=== PATIENT | female | born 1985 | race Caucasian/White ===

== ENCOUNTER 2024-11-30 09:23 | Outpatient (CLI) | payer SELFPAY ==
--- OUTSIDE RECORDS SUMMARY | 2024-11-30 09:29 | XMS_ITS | Data Portability ---
Author Organization [facility] Address [address] [place] [address] Assessment No assessment recorded. Plan of Treatment Reminders Order Date Submit Date Provider Last Modified By Organization Details Last Modified Time Details Appointments None recorded. Lab streptococc us group B, culture, unspecified specimen 2022 023 timbo [facility]( [facility]), [place], [address], 4 15:14:26 CBC w/ auto diff [email or web address] [facility] [place], [address], 3 15:35:37 potassium, serum 2022 023 [facility]( Lab), [place], [address], 3 15:35:37 urinalysis, reflex culture [email or web address] [facility] [place], [address], 3 15:35:37 urinalysis, dipstick 2022 023 stefany [facility], [address] [place] [address] , [place], [address], 17:37:11 urinalysis, dipstick 2022 023 stefany [facility], [address] [place] [address] , [place], [address], 11:35:27 urinalysis, dipstick 2022 023 [facility], [address] [place] [address] , [place], [address], 3 11:04:13 urinalysis, dipstick 2022 023 [facility], [address] [place] [address] , [place], [address], 11:18:58 Referral gynecologic surgery referral 2022 023 [email or web address] Not available 15:04:48 Procedures None recorded. Surgeries None recorded. Imaging None recorded. Medication Orders None recorded. Patient TargetsNo targets recorded. Patient Instructions Encounter Date Encounter Id Patient Instructions Last Modified By Organization Details Last Modified Time 04/07/2023 [id number] medical record request* [email or web address] Not available 05/08/2023 14:57:33 Reason for Referral Gynecologic Surgery Referral for Supervision of high risk with history of previous section done Referring Physician: Gerda Jackson TYPEWRITER REPAIRER, Encounter Date: 04/07/2023 Results Created Date Observation Date Name Description Value Unit Range Abnormal Flag Note LastModifiedBy Organization Detail LastModifiedTime 05/09/2005/09/2023 CBC W/AUT O DIFFE RENTI AL note See Note Order ing Provi bradley: Ever galdamez DO Not Available [facility] [address] [place], [address], 05/09/2023 12:02:55 05/09/2005/0905/09/2023 CBC W/AUT O DIFFE RENTI AL white blood cell 9.4 10e3/ uL 4.5-13 .0 normal Not Available [place] [address], [place], [address], 05/09/2023 12:02:55 05/09/20 23 05/09/2023 CBC W/AUT O DIFFE RENTI AL red blood cell 4.44 10e6/ uL 3.80-5 .10 normal Not Available [place] [address], [place], [address], 05/09/2023 12:02:55 05/09/20 23 05/09/2023 CBC W/AUT O DIFFE RENTI AL hemoglobin 13.3 g/dL 11.5-1 5.3 normal Not Available [place] [address], [place], [address], 05/09/2023 12:02:55 05/09/20 23 05/09/2023 CBC W/AUT O DIFFE RENTI AL hematocrit 40.4 % 34.0-4 6.0 normal Not Available [place] [address], [place], [address], 05/09/2023 12:02:55 05/09/20 23 05/09/2023 CBC W/AUT O DIFFE RENTI AL mean cell volume 91 fL 78.0-9 8.0 normal Not Available [place] [address], [place], [address], 05/09/2023 12:02:55 05/09/20 23 05/09/2023 CBC W/AUT O DIFFE RENTI AL mean cell HGB 30.0 pg 25.0-3 5.0 normal Not Available [place] [address], [place], [address], 05/09/2023 12:02:55 05/09/20 23 05/09/2023 CBC W/AUT O DIFFE RENTI AL mean cell HGB concentratio n 32.9 g/dL 31.0-3 6.0 normal Not Available [address] [place], [place], [address], 05/09/2023 12:02:55 05/09/20 23 05/09/2023 CBC W/AUT O DIFFE RENTI AL red cell distribution width 13.9 % 11.0-1 5.0 normal Not Available [address] [place], [place], [address], 05/09/2023 12:02:55 05/09/20 23 05/09/2023 CBC W/AUT O DIFFE RENTI AL platelet count 202 10e3/ uL 150-40 0 normal Not Available [address] [place], [place], [address], 05/09/2023 12:02:55 05/09/20 23 05/09/2023 CBC W/AUT O DIFFE RENTI AL immature granulocyte % 1 0-1 normal Not Available [address] [place], [place], [address], 05/09/2023 12:02:55 05/09/20 23 05/09/2023 CBC W/AUT O DIFFE RENTI AL neutrophil % 74 % 35-75 normal Not Available [address] [place], [place], [address], 05/09/2023 12:02:55 05/09/20 23 05/09/2023 CBC W/AUT O DIFFE RENTI AL lymphocyte % 20 % 10-50 normal Not Available [address] [place], [place], [address], 05/09/2023 12:02:55 05/09/20 23 05/09/2023 CBC W/AUT O DIFFE RENTI AL monocyte % 5 % 0-15 normal Not Available [address] , [place], [address], 05/09/2023 12:02:55 05/09/20 23 05/09/2023 CBC W/AUT O DIFFE RENTI AL eosinophil % 1 % 0-5 normal Not Available [address] , [place], [address], 05/09/2023 12:02:55 05/09/20 23 05/09/2023 CBC W/AUT O DIFFE RENTI AL basophil % 0 % 0-5 normal Not Available [address] , [place], [address], 05/09/2023 12:02:55 05/09/20 23 05/09/2023 CBC W/AUT O DIFFE RENTI AL immature granulocyte # 0.05 x1000 /uL 0-0.05 normal Not Available [address] , [place], [address], 05/09/2023 12:02:55 05/09/20 23 05/09/2023 CBC W/AUT O DIFFE RENTI AL neutrophil # 6.95 x1000 /uL 1.50-8 .00 normal Not Available [address] , [place], [address], 05/09/2023 12:02:55 05/09/20 23 05/09/2023 CBC W/AUT O DIFFE RENTI AL lymphocyte # 1.85 x1000 /uL 1.20-5 .20 normal Not Available [address] [place], [place], [address], 05/09/2023 12:02:55 05/09/20 23 05/09/2023 CBC W/AUT O DIFFE RENTI AL monocyte # 0.49 x1000 /uL 0.40-0 .90 normal Not Available [address] , [place], [address], 05/09/2023 12:02:55 05/09/20 23 05/09/2023 CBC W/AUT O DIFFE RENTI AL eosinophil # 0.08 x1000 /uL 0.00-0 .50 normal Not Available [address] , [place], [address], 05/09/2023 12:02:55 05/09/20 23 05/09/2023 CBC W/AUT O DIFFE RENTI AL basophil # 0.02 x1000 /uL 0.00-0 .30 normal Not Available [address] , [place], [address], 05/09/2023 12:02:55 05/09/20 23 05/09/2023 CBC W/AUT O DIFFE RENCAMPBELL AL NRBC automated 0.0 /100_ WBC Not Available [address] , [place], [address], 05/09/2023 12:02:55 05/09/20 23 05/09/2023 CBC W/AUT O DIFFE RENTI AL performing lab see note [facility] [address] [facility] [address] Not Available [address] , [place], [address], 05/09/2023 12:02:55 05/09/20 23 05/09/2023 URINA LYSIS COMPL ETE note See Note Order ing Provi bradley: Ever galdamez DO Not Available [address] , [place], [address], 05/09/2023 12:19:16 05/09/20 23 05/09/2023 URINA LYSIS COMPL ETE UA method of collection CLEAN CATCH Not Available [address] , [place], [address], 05/09/2023 12:19:16 05/09/20 23 05/09/2023 URINA LYSIS COMPL ETE UA color YELLOW yellow Not Available [address] , [place], [address], 05/09/2023 12:19:16 05/09/20 23 05/09/2023 URINA LYSIS COMPL ETE UA appearance SL.CANDIDO UDY clear Not Available [address] , [place], [address], 05/09/2023 12:19:16 05/09/20 23 05/09/2023 URINA LYSIS COMPL ETE UA glucose dipstick NEGATI VE negati ve Not Available [address] , [place], [address], 05/09/2023 12:19:16 05/09/20 23 05/09/2023 URINA LYSIS COMPL ETE UA bilirubin dipstick NEGATI VE negati ve Not Available [address] [place], [place], [address], 05/09/2023 12:19:16 05/09/20 23 05/09/2023 URINA LYSIS COMPL ETE UA ketone dipstick 1+ negati ve abnormal Not Available [address] [place], [place], [address], 05/09/2023 12:19:16 05/09/20 23 05/09/2023 URINA LYSIS COMPL ETE UA specific gravity 1.020 1.005- 1.030 normal Not Available [address] [place], [place], [address], 05/09/2023 12:19:16 05/09/20 23 05/09/2023 URINA LYSIS COMPL ETE UA blood dipstick 1+ negati ve abnormal Not Available [address] [place], [place], [address], 05/09/2023 12:19:16 05/09/20 23 05/09/2023 URINA LYSIS COMPL ETE UA pH dipstick 6.0 5.0-9. 0 normal Not Available [address] [place], [place], [address], 05/09/2023 12:19:16 05/09/20 23 05/09/2023 URINA LYSIS COMPL ETE UA protein dipstick NEGATI VE negati ve Not Available [address] [place], [place], [address], 05/09/2023 12:19:16 05/09/20 23 05/09/2023 URINA LYSIS COMPL ETE UA urobilinogen dipstick NEGATI VE mg/dL <1 Not Available [address] [place], [place], [address], 05/09/2023 12:19:16 05/09/20 23 05/09/2023 URINA LYSIS COMPL ETE UA nitrite dipstick NEGATI VE negati ve Not Available [address] [place], [place], [address], 05/09/2023 12:19:16 05/09/20 23 05/09/2023 URINA LYSIS COMPL ETE UA leukocyte esterase dipstick TRACE negati ve Not Available [address] [place], [place], [address], 05/09/2023 12:19:16 05/09/20 23 05/09/2023 URINA LYSIS COMPL ETE UA RBC 0-5 RBC/h pf none seen abnormal Not Available [address] [place], [place], [address], 05/09/2023 12:19:16 05/09/20 23 05/09/2023 URINA LYSIS COMPL ETE UA WBC 6-10 WBC/h pf 0-5 Not Available [address] , [place], [address], 05/09/2023 12:19:16 05/09/20 23 05/09/2023 URINA LYSIS COMPL ETE UA epithelial cells 0-5 SQUAMO US epi/h pf 0-5 Not Available [address] , [place], [address], 05/09/2023 12:19:16 05/09/20 23 05/09/2023 URINA LYSIS COMPL ETE UA bacteria 1+ none seen abnormal Not Available [address] , [place], [address], 05/09/2023 12:19:16 05/09/20 23 05/09/2023 URINA LYSIS COMPL ETE UA mucus NONE SEEN none seen Not Available [address] , [place], [address], 05/09/2023 12:19:16 05/09/20 23 05/09/2023 URINA LYSIS COMPL ETE UA amorphous sediment NONE SEEN none seen Not Available [address] [place], [place], [address], 05/09/2023 12:19:16 05/09/20 23 05/09/2023 URINA LYSIS COMPL ETE comment 1 REFLEX ADDED Not Available [address] , [place], [address], 05/09/2023 12:19:16 05/09/20 23 05/09/2023 URINA LYSIS COMPL ETE performing lab see note ML - [facility] [address] [facility] [id number] Not Available [address] , [place], [address], 05/09/2023 12:19:16 05/09/20 23 05/09/2023 POTAS SIUM note See Note Order ing Provi bradley: Ever galdamez DO Not Available [address] , [place], [address], 05/09/2023 12:20:26 05/09/20 23 05/09/2023 POTAS SIUM potassium 4.2 mmol/ L 3.5-5. 1 normal Not Available [address] , [place], [address], 05/09/2023 12:20:26 05/09/20 23 05/09/2023 POTAS SIUM performing lab see note - [facility] [address] [facility] [address] Not Available [address] , [place], [address], 05/09/2023 12:20:26 05/09/20 23 05/09/2023 URINE CULTU RE note See Note Order ing Provi bradley: Ever galdamez DO Not Available [address] , [place], [address], 05/11/2023 08:52:48 05/09/20 23 05/09/2023 URINE CULTU RE urine culture See Below URINE CULTU RE(F) Rui Date/ Time: 05/09 11:39 Eloisa Date/ Time: 05/11 08:51 SOURC E: CLEAN CATCH SPEC DESC: Organ ism #1 MIXED GENIT OURIN NAKUL NADIR COLON Y COUNT : >100, 000 CFU/M L ORGAN ISM COMME NT:OR GCOM NO CLINI JUANIS SIGNI FICAN T GROWT H Not Available [address] [place], [address], 05/11/2023 08:52:48 05/09/20 23 05/09/2023 URINE CULTU RE performing lab see note - [facility] [address] [facility] [address] Not Available [address] , [place], [address], 05/11/2023 08:52:48 05/16/20 23 05/16/2023 UR DRUG SCREE N note See Note Order ing Provi bradely: Ever Wu ki DO Not Available [address] , [place], [address], 05/16/2023 07:18:57 05/16/20 23 05/16/2023 UR DRUG SCREE N ur cocaine qual NEGATI VE 150NG /mL det limit= Not Available [address] , [place], [address], 05/16/2023 07:18:57 05/16/20 23 05/16/2023 UR DRUG SCREE N ur cannabinoid( THC) qual NEGATI VE 50NG/ mL det limit= Not Available [address] , [place], [address], 05/16/2023 07:18:57 05/16/20 23 05/16/2023 UR DRUG SCREE N ur amphetamine qual NEGATI VE 500NG /mL det limit= Not Available [address] [place], [place], [address], 05/16/2023 07:18:57 05/16/20 23 05/16/2023 UR DRUG SCREE N ur barbiturate qual NEGATI VE 200NG /mL det limit= Not Available [address] , [place], [address], 05/16/2023 07:18:57 05/16/20 23 05/16/2023 UR DRUG SCREE N ur benzodiazepi ne qual NEGATI VE 200NG /mL det limit= Not Available [address] , [place], [address], 05/16/2023 07:18:57 05/16/20 23 05/16/2023 UR DRUG SCREE N ur opiates qual NEGATI VE 300NG /mL det limit= Not Available [address] , [place], [address], 05/16/2023 07:18:57 05/16/20 23 05/16/2023 UR DRUG SCREE N ur phencyclidin e (pcp) qual NEGATI VE 25NG/ mL det limit= Not Available [address] , [place], [address], 05/16/2023 07:18:57 05/16/20 23 05/16/2023 UR DRUG SCREE N ur tricylic group qual NEGATI VE 1000N G/m det limit= Not Available [address] , [place], [address], 05/16/2023 07:18:57 05/16/20 23 05/16/2023 UR DRUG SCREE N methadone urine NEGATI VE 300NG /mL det limit= Not Available [address] [place], [place], [address], 05/16/2023 07:18:57 05/16/20 23 05/16/2023 UR DRUG SCREE N ur MDMA (ecstacy) ql NEGATI VE 500NG /mL det limit= Not Available [address] [place], [place], [address], 05/16/2023 07:18:57 05/16/20 23 05/16/2023 UR DRUG SCREE N ur oxycodone ql NEGATI VE 100NG /mL det limit= Not Available [address] [place], [place], [address], 05/16/2023 07:18:57 05/16/20 23 05/16/2023 UR DRUG SCREE N ur buprenorphin e qual NEGATI VE 10NG/ mL det limit= Not Available [address] , [place], [address], 05/16/2023 07:18:57 05/16/20 23 05/16/2023 UR DRUG SCREE N performing lab see note ML - [facility] [address] [place] [address] Not Available [address] , [place], [address], 05/16/2023 07:18:57 05/16/20 23 05/16/2023 CORD BLOOD PH note See Note Order ing Provi bradley: Ever Wu ki DO Not Available [address] , [place], [address], 05/16/2023 08:48:04 05/16/20 23 05/16/2023 CORD BLOOD PH cord blood pH 7.29 7.110- 7.360 normal Not Available [address] , [place], [address], 05/16/2023 08:48:04 05/16/20 23 05/16/2023 CORD BLOOD PH performing lab see note ML - [facility] [address] [place] [address] Not Available [address] [place], [address], 05/16/2023 08:48:04 01/31/20 23 02/04/2023 US, obste tric, 2nd trime ster No observ ation record ed. [facility] [address] [facility] , [place], [address], 02/04/2023 21:55:06 01/31/20 23 02/04/2023 US, obste tric, trans vagin al No observ ation record ed. stefany [facility] [address] [place] [address] , [place], [address], 02/04/2023 21:55:24 02/08/20 23 01/30/2023 US, obste tric, 2nd trime ster No observ ation record ed. BARCODE [facility] [address] [place] [address] , [place], [address], 02/07/2023 09:52:18 02/08/20 23 01/30/2023 US, obste tric, trans vagin al No observ ation record ed. BENTLEY [facility] [address] [place] [address] , [place], [address], 02/07/2023 09:52:18 Result Notes None recorded. Problems Name Problem SNOMED Code Status Onset Date Resolution Date Notes Provider Name and Address Organization Details Recorded Time Placenta previa 05581567 Completed 10/13/2020 complete Pebbles Boyce [place], [place] - [facility] 1 07:57:17 High risk pregnanc y 95671834 Completed 03/21/2021 Infusion Nurse [facility], [place], [address] , [facility] - [facility] 4 08:21:11 Placenta previa 69259309 Completed complete [facility] [address], [place], [address] , [place] - [facility] 0 11:57:35 High risk pregnanc y 14986102 Completed Infusion Nurse [facility] [address], [place], [address] , [facility] - [facility] 0 11:57:35 Pregnanc y 32926235 Completed 201807/08/2019 Infusion Nurse [facility] [address], [place], [address] , [facility] - [facility] 4 08:20:55 Gastroes ophageal reflux disease 708298214 Active Roxanne Santillan, TUBE PULLER [address], [place], [address] , [place] - [facility] 3 11:31:17 Normal pregnanc y 44377727 Completed 04/01/2019 Aruna [place], [place] - [facility] 9 09:31:33 Pregnanc y 96016133 Completed 201504/05/2016 In[facility] [address], [place], [address] , [place] - [facility] 4 08:20:55 Past pregnanc y history of placenta previa 788353987 Completed 202003/21/2021 In[facility] Nurse [facility] [address], [place], [address] , [place] - [facility] 1 15:31:35 Supervis ion of high risk pregnanc y with history of previous section Completed 202003/21/2021 Infusion Nurse [facility] [address], [place], [address] , [place] - [facility] 1 15:31:51 Supervis ion of high risk pregnanc y with history of previous section done 78299212765 106 Completed 2020 36 wk Primary C/S in 2019 @ [facility] [address], [place], [address] , [place] - [facility] 1 15:31:13 High risk pregnanc y care Completed 2020 In[facility] Nurse [facility] [address], [place], [address] , [place] [facility] 1 15:31:14 Pregnanc y 26473217 Completed 202010/13/2020 In[facility] Nurse [facility] [address], [place], [address] , [place] [facility] 4 08:20:55 Multigra rody of advanced maternal age 957808569 Completed 2020 35 y/o G11 Infusion Nurse [facility] [address], [place], [address] , [place] [facility] 1 15:31:14 Multigra rody of advanced maternal age 510689176 Completed 202003/21/2021 35 y/o G11 Infusion Nurse [facility] [address], [place], [address] , [place] - [facility] 15:31:46 Maternal obesity complica ting pregnanc y, childbir th and the puerperi um, antepart 24759142554 7 Completed 2020 BMI: 30 [x] A1c: 5.2 Infusion Nurse [facility] [address], [place], [address] , [place] - [facility] 15:31:13 Maternal obesity complica ting pregnanc y, childbir th and the puerperi , antepart 74789414162 7 Completed 202003/21/2021 BMI: 30 [x] A1c: 5.2 Infusion Nurse [facility] [address], [place], [address] , [place] - [facility] 1 15:31:40 Past pregnanc y history of delivery of macrosom al 82757211253 102 Completed 2020 9#, 2014 9# 8oz, 2016 9# Infusion Nurse [facility] [address], [place], [address] , [place] - [facility] 15:31:14 Past pregnanc y history of delivery of macrosom al infant 99386786463 102 Completed 202003/21/20212010 9#, 2014 9# 8oz, 2016 9# Infusion Nurse [facility] [address], [place], [address] , [place] - [facility] 15:31:31 Antenata l screenin g Completed Declined genetic testing [facility] [address], [place], [address] , [place] - [facility] 15:31:14 Gestatio nal diabetes mellitus 10572180 Completed Checked BS at home - diet controll ed Infusion Nurse [facility] [address], [place], [address] , [place] - [facility] 15:31:14 Transien t hyperten rich of pregnanc y - not delivere d 842532477 Completed Difficul t to determin e if GHTN due to elevated BP with headache at home but only had one episode of elevated BP in office [facility] [address], [place], [address] , [place] - [facility] 1 15:31:14 Postnata l care status 598848133 Completed 10/25/2022 Roxanne Santillan, TUBE PULLER [address], [place], [address] , [place] - [facility] 3 11:31:21 Pregnanc y 53199399 Completed 202206/03/2023 Infusion Nurse [facility] [address], [place], [address] , [place] - [facility] 4 08:20:55 Active immuniza tion Completed declined all [facility] Nurse [facility] [address], [place], [address] , [place] - [facility] 4 08:20:44 Antenata l screenin g Completed declined all [facility] [address], [place], [address] , [place] - [facility] 4 08:20:44 Past pregnanc y history of gestatio nal hyperten rich 837502208 Completed 2022 [x]basel ine pre-e labs: [ ] ASA Infusion Nurse [facility] [address], [place], [address] , [place] - [facility] 4 08:20:44 Past pregnanc y history of gestatio nal hyperten rich 850195069 Completed 202206/03/2023 [x]basel ine pre-e labs: [ ] ASA [facility] Nurse [facility] [address], [place], [address] , [place] - [facility] 4 08:21:19 Advanced maternal age 791769378 Completed 202206/03/2023 [ ]twice weekly NST at 32wks [ ]weekly MARYLU declines twice weekly but will do weekly [facility] [address], [place], [address] , [place] - [facility] 4 08:21:08 Advanced maternal age 385855665 Completed 2022 [ ]twice weekly NST at 32wks [ ]weekly MARYLU declines twice weekly but will do weekly [facility] [address], [place], [address] , [place] [facility] 4 08:20:44 High risk pregnanc y 29708279 Completed 2022 Infusion Nurse [facility] [address], [place], [address] , [place] [facility] 4 08:20:44 High risk pregnanc y 91480032 Completed 202206/03/2023 Infusion Nurse [facility] [address], [place], [address] , [place] [facility] 4 08:21:11 Past pregnanc y history of gestatio nal diabetes mellitus 191613629 Completed 202206/03/2023 [ ]Early 1hr gtt: Infusion Nurse [facility] [address], [place], [address] , [place] [facility] 4 08:21:15 Past pregnanc y history of gestatio nal diabetes mellitus 707966433 Completed 2022 [ ]Early 1hr gtt: Infusion Nurse [facility] [address], [place], [address] , [place] [facility] 4 08:20:44 Supervis ion of high risk pregnanc y with history of previous section done 72742033900 106 Completed 2022 [x] C-sectio n 05/16 w/ SMO Infusion Nurse [address], [place], [address] , [place] [facility] 4 08:20:44 Supervis ion of high risk pregnanc y with history of previous section done 99518016966 106 Completed 202206/03/2023 [x] C-sectio n 05/16 w/ SMO Infusion Nurse [facility] [address], [place], [address] , [place] [facility] 4 08:21:24 Atrial fibrilla tion 88351274 Active Infusion Nurse [facility] [address], [place], [address] , [place] [facility] 4 08:20:44 Atrial fibrilla tion 23756541 Completed [facility] [address], [place], [address] , [place] [facility] 4 08:20:44 Problem Notes None recorded. Procedures Surgical History Date Name Laterality Status Provider Name and Address Organization Details Recorded Time 3 delivery completed [facility] Nurse [facility] [address], [place], [address], [place] [facility] 06/03/2023 08:21:58 3 OB Ultrasound Summary completed Roopa Reyes [place] - [facility] 01/30/2023 16:28:55 3 OB Ultrasound Summary completed Roopa Reyes [place] - [facility] 11/21/2022 12:11:23 3 OB Ultrasound Summary completed Roopa Reyes [place] - [facility] 10/25/2022 12:18:42 1 section completed Roxanne Santillan APRN [address], [place], [address], [place] [facility] 10/25/2022 11:33:23 1 OB Ultrasound Summary completed Roopa Reyes [place] [facility] 02/12/2021 15:50:26 1 OB Ultrasound Summary completed Roopa Reyes [place] [facility] 10/19/2020 14:30:08 9 section completed Effie Sequeira APRN [address], [place], [id number], [place] [facility] 10/13/2020 11:38:00 9 OB Ultrasound Summary completed Benjaminbradford Reyes [place] [facility] 04/29/2019 12:02:53 9 OB Ultrasound Summary completed Yasmeen Cordova [place] [facility] 04/14/2019 09:52:47 9 OB Ultrasound Summary [place] Yara Smith [place] [facility] 04/01/2019 09:08:44 9 OB Ultrasound Summary [place] Yasmeen Cord[place] [facility] 03/05/2019 11:10:29 9 OB Ultrasound Summary completed Roopa Reyes [place] [facility] 02/04/2019 15:39:29 9 OB Ultrasound Summary [place] Yasmeen Cordova [place] [facility] 11/23/2018 12:26:21 9 OB Ultrasound Summary [place] Roopa [place]yes [place] [facility] 10/27/2018 13:13:49 9 OB Ultrasound Summary [place] Yara Smith [place] [facility] 08/06/2018 12:11:17 6 OB Ultrasound Summary completed Yasmeen Cordova [place] [facility] 04/05/2016 10:31:43 Imaging Results None recorded. Procedure Notes None recorded. Medical Equipment None Reported. Allergies No known drug allergies Medications Name Sig Start Date Stop Date Status Note LastModified by Organization Details LastModified Time amoxicill in 500 mg capsule TAKE (1) CAPSULE BY MOUTH TWICE DAILY. 02/19 completed Not Available Not Available Not Available Celestone Soluspan 6 mg/mL suspensio n for injection Take 12 mg every day by injectio n route for 2 days. 10/13 completed Not Available Not Available Not Available Diflucan 150 mg tablet take 1 tablet (150 mg) by oral route once today, repeat dose in 48 hrs; may repeat regimen in two weeks if symptoms continue 04/05 completed Diflucan oral tablet 150 mg;Recor ded Status: Recorded on: 06/15/19 15 9:18AM;U ser: [email or web address] ;Indicat ion: Vulvovag inal Candidia sis - ();Prin marin: 06/15/19 15 Not Available Not Available Not Available Metrogel Vaginal 0.75 % (37.5 mg/5 gram) insert 1 applicat orful (37.5 mg) by vaginal route once daily at bedtime for 5 days 06/15 completed Metrogel Vaginal Vaginal Gel 0.75 %;Record ed Status: Recorded on: 03/20/20 11 3:50PM;D iscontin ued Status: Disconti nued on: 06/15/19 15 8:46AM;U ser: [email or web address] ;Est. Completi on: 03/25/20 11;Indic ation: Bacteria l Vaginosi s - ([id number] );Prin marin: 03/20/20 11 Not Available Not Available Not Available nifedipin e 10 mg capsule Take 1 capsule 4 times a day by oral route as needed. 10/13 completed Not Available Not Available Not Available ranitidin e 150 mg tablet Take 1 tablet PO QD 04/14 completed Not Available Not Available Not Available flecainid e 100 mg tablet TAKE 1 TABLET BY MOUTH TWICE DAILY 10/25 completed Not Available Not Available Not Available iron 325 mg (65 mg iron) tablet take 4 tablets by oral route daily 08/06 completed iron oral tablet 325 mg (65 mg iron);Re corded Status: Recorded on: 06/15/19 15 8:46AM;U ser: [email or web address] Not Available Not Available Not Available Prilosec OTC 20 mg tablet,de layed release Take 1 tab PO QD 10/13 completed Not Available Not Available Not Available 27 mg iron-0.8 mg tablet take 1 tablet by oral route once daily 10/13 completed oral tablet 27-0.8 mg;Recor ded Status: Recorded on: 06/15/19 15 8:46AM;U ser: [email or web address] Not Available Not Available Not Available herbs qd active Not Available Not Av ailable Not Available metoprolo l succinate ER 50 mg capsule sprinkle, ext. release 24 hr Take 1 capsule every day by oral route. active Not Available Not Available No t Available Vitals Date Recorded Body weight Body mass index (BMI) Body height Heart rate Oxygen saturation Oxygen saturation in Arterial blood by Pulse oximetry Respiratory rate Systolic And Diastolic Provider Name and Address Organization Details Last Updated DateTime 3 29899.5 503 g 32.6 kg/m2 162.56 cm 82 /min 98 % 98 % 17 /min 110/78 mm[Hg] Ariela Waters [place] - [facility] 3 10:55:31 Date Recorded Body weight Provider Name an d Address Organization Details Last Updated DateTime 03/21/2023 09706.56506 g Gerda Jackson , DO [address], [place], [address], [place] - [facility] 03/21/2023 11:02:02 Date Recorded Body height Body mass index (BMI) Systolic And Diastolic Provider Name and Address Organization Details Last Updated DateTime 03/21/2023 162.56 cm 33.3 kg/m2 116/74 mm[Hg] Shayy Mckenna [place] - [facility] 03/21/2023 10:40:44 Date Recorded Body height Body mass index (BMI) Body weight Systolic And Diastolic Provider Name and Address Organization Details Last Updated DateTime 04/07/2023 162.56 cm 34.7 kg/m2 25112.658 74 g 124/76 mm[Hg] Iris Valentino [facility] 04/07/2023 11:26:24 Date Recorded Body height Body mass index (BMI) Body weight Systolic And Diastolic Provider Name and Address Organization Details Last Updated DateTime 04/28/2023 162.56 cm 35.5 kg/m2 92508.620 59 g 116/74 mm[Hg] Iris Valentino [facility] 04/28/2023 13:39:35 Date Recorded Body height Body mass index (BMI) Body weight Systolic And Diastolic Provider Name and Address Organization Details Last Updated DateTime 05/09/2023 162.56 cm 36 kg/m2 27439.397 7 g 118/78 mm[Hg] Iris Valentino [facility] 05/09/2023 10:36:03 Social History Question Answer Notes LastModified by Organizat ion Details LastModified Time Tobacco Smoking Status Never Smoker Brooke anglin [facility] 04/05/2016 10:59:53 Do You Have An Advance Directive? No Information not available 04/05/2016 If You Are , What Was Your Level Of Alcohol Consumption Prior To ? None [email or web address] Information not available 10/13/2020 Is Anesthesia Consult Planned? No Wants Information not available 10/13/2020 Plan Yes Wants If Possible Information not available 10/13/2020 Are You Blind Or Do You Have Difficulty Seeing? No Information not available 04/05/2016 Is Blood Transfusion Acceptable In An Emergency? Yes [email or web address] Information not available 10/13/2020 Breast Feeding? Yes [email or web address] Informati on not available 10/13/2020 What Is Your Level Of Caffeine Consumption? Occasional Information not available 04/05/2016 Live With Cats/exposure To Cat Litter No [email or web address] Information not available 10/13/2020 How Much Tobacco Do You Chew? None Information not available 04/05/2016 In The 14 Days Before Symptom Onset, Have You Had Close Contact With A Laboratory-confi rmed COVID-19 While That Case Was Ill? No Information not available 10/25/2022 In The 14 Days Before Symptom Onset, Have You Had Close Contact With A Person Who Is Under Investigation For COVID-19 While That Person Was Ill? No Information not available 10/25/2022 Have You Been To An Area Known To Be High Risk For COVID-19? No Information not available 10/25/2022 Are You Deaf Or Do You Have Serious Difficulty Hearing? No Information not available 04/05/2016 Diabetes No [email or web address] Information no t available 10/13/2020 What Type Of Diet Are You Following? REGULAR Information not available 04/05/2016 Which Illicit Or Recreational Drugs Have You Used? None Information not available 04/05/2016 Have You Processed Blood Or Body Fluids From An Ebola Virus Disease Patient Without Appropriate PPE? No Information not available 10/25/2022 Do You Reside In Or Have You Traveled To An Area Where Ebola Virus Transmission Is Active? No Information not available 10/25/2022 Education 8 [email or web address] Information no t available 10/13/2020 What Is The Highest Grade Or Level Of School You Have Completed Or The Highest Degree You Have Received? [id number] Information not available 10/27/2018 How Many Days Of Moderate To Strenuous Exercise, Like A Brisk Walk, Did You Do In The Last 7 Days? 1 Information not available 10/27/2018 On Those Days That You Engage In Moderate To Strenuous Exercise, How Many Minutes, On Average, Do You Exercise? 1 [email or web address] Information not available 10/27/2018 Have There Been Any Changes To Your Family Or Social Situation? No [email or web address] Information not available 10/13/2020 How Hard Is It For You To Pay For The Very Basics Like Food, Housing, Medical Care, And Heating? 1 [email or web address] Information not available 10/27/2018 Frequent Air Travel No [email or web address] Information not available 10/13/2020 Have You Recently Or Are You Planning To Travel To An Area With Zika Virus? No Information not available 10/25/2022 High Blood Pressure No [email or web address] Information not available 10/13/2020 High Cholesterol No Informat ion not available 10/13/2020 High Number Of Sexual Partners No [email or web address] Information not available 10/13/2020 Illicit Drugs Pre- None [email or web address] Information not available 10/13/2020 Live Alone Or With Others? With Others Information not available 04/05/2016 Latex Allergy No Information not available 10/13/2020 Marital Status [email or web address] Informatio n not available 10/13/2020 What Was The Date Of Your Most Recent Tobacco Screening? 10/25/2022 [email or web address] Information not available 10/18/2022 How Many Children Do You Have? 10 Information not available 10/25/2022 Do You Have Any Pets? No Information not available 10/13/2020 Do You Use Protection During Sex? No Information not available 04/05/2016 What Is Your Relationship Status? Information not available 04/05/2016 Seat Belts Used Routinely Yes When In A Vehicle [email or web address] Information not available 10/13/2020 Are You Sexually Active? Yes Information not available 04/05/2016 Do You Have Smoke And Carbon Monoxide Detectors In Your Home? Yes [email or web address] Information not available 10/13/2020 Are You Passively Exposed To Smoke? No [email or web address] Information not available 10/13/2020 How Much Tobacco Do You Smoke? No [email or web address] Information not available 10/13/2020 Smoking Pre- No [email or web address] Information not available 10/13/2020 General Stress Level Low Information not available 04/05/2016 Do You Use Sunscreen Routinely? No Information not available 04/05/2016 Supplements Herbs [email or web address] Information not available 10/13/2020 Has Tobacco Cessation Counseling Been Provided? No Information not available 10/25/2022 How Many Years Have You Smoked Tobacco? 0 [email or web address] Information not available 10/13/2020 Do You Have Difficulty Walking Or Climbing Stairs? No Information not available 04/05/2016 Do You Have Symptoms Associated With Zika Virus (fever, Rash, Joint Pain, Or Conjunctivitis)? No [email or web address] Information not available 10/13/2020 Have You Recently (within The Last 12 Weeks, Or During A Current ) Traveled To Or Lived In A Zika-affected Area? No [email or web address] Information not available 10/13/2020 Sex: Female Functional Status Question Answer Note LastModified by Organizat ion Details LastModified Time Do you or have you ever used smokeless tobacco? Never used smokeless tobacco [email or web address] Information not available 10/13/2020 Are you currently employed? No Information not available 04/05/2016 Do you have transportation difficulties? No Information not available 10/25/2022 Are you able to care for yourself? Yes Information n ot available 10/25/2022 Do you have difficulty dressing or bathing? No Information not available 04/05/2016 Do you or have you ever used e-cigarettes or vape? Never used electronic cigarettes [email or web address] Information not available 10/13/2020 What is your exercise level? None Information not available 04/05/2016 Do you use any illicit or recreational drugs? No Information not available 10/25/2022 Do you or have you ever used any other forms of tobacco or nicotine? No Information not available 10/25/2022 What is your level of alcohol consumption? None Information not available 04/05/2016 What is your status? Information no t available 10/25/2022 Are you able to walk? YESWOREST [email or web address] Information not available 10/27/2018 Do you have difficulty doing errands alone? 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 [id number] Information not available 10/25/2022 Do you have difficulty concentrating, remembering or making decisions? No Information no t available 04/05/2016 Family History Relationship Description Onset Age of this Age Resolved Age Notes LastModified by Organization Details LastModified Time Father Heart disease [email or web address] available 2015 09:45:16 Medical History Condition Response Pancreatitis N Other N Atrial Fibrillation N congenital heart disease N Blood Diseases N Hyperthyroidism N Rheumatoid arthritis N Blood Transfusion N Erectile Dysfunction N amputation N Skin Lesions N Depression N Pneumonia N Incontinence N Murmur N Edema N Alzheimer's Disease N Migraine Headaches N Tobacco Abuse N Anxiety Disorder N Hemorrhoids N Obesity N Vision or Eye Problems N Restless Leg Syndrome N Arthritis N Polyps N Infertility N Carpal Tunnel N Acid Reflux (GERD) N Cancer N Varicosities N Stroke N Tendonitis N Crohn's Disease N Hypercholesterolemia N Skin Cancer N Headaches N Fibromyalgia N Irritable Bowel Syndrome N Anal Fissure N Kidney Disease N Heart Problems N Hospitalizations Y Gallstones N Kidney or Bladder Problems N Goiter N Acne N Eating Disorder N Weston's Esophagus N Hypertriglyceridemia N Constipation N Embolism N Vitamin B12 Deficiency N Deviated Septum N AIDS/HIV N Myocardial Infarction N Asthma N Mitral Valve Disorders N Vertigo N Hepatitis N Thyroid Cancer N Neuropathy N History of DVT N Herniated Disc N Chicken Pox Y Von Willebrands Disease N Thrombophilias N Breast Cancer N Hernia N Plantar Fasciitis N Lung Disease N Hypothyroidism N Defects or Inherited Disease N Breast Problem N Ovarian Cyst N Anesthesia Complications N Testosterone Deficiency N Interstitial Cystitis N Congenital Anomalies N Hypoglycemia N Blood clot N Vitamin D Deficiency N Cellulitis N Endometriosis N Fracture N Bladder or Kidney Problems N Schizophrenia N Panic Disorder N Concussion N Spina Bifida N Osteoarthritis N Parkinson's Disease N Disc Protrusion N STI N Esophagitis N Angina N Thyroid Problems N GI Problems N ADD/ADHD N Anemia Y Multiple Sclerosis N Abnormal PAP N Lumbago N Mental Illness N Psychiatric Illness N Ovarian Cancer N Diabetes N Degenerative Disc Disease N Seizures/Epilepsy N Syncope N Insomnia N Hyperlipidemia N Eczema N Dementia N Attention Deficient Disorder N Abuse/Domestic Violence N Ulcerative colitis N Cerebrovascular Disease N Depression N Guillain-[place] N Sleep Apnea N Aneurysm N Heart Disease Y Bronchitis N Suicidal Ideation N Pre-Eclampsia N Hypertension N Osteoporosis N Gynecological History Statement/Question Response Abnormal Pap N Date of Last Mammogram Flow Moderate Date of LMP 08/29/2022 On BCP's at Conception? N STIs/STDs N Colposcopy HPV Vaccine N Duration of Flow (days) Current Control Method Age at Menarche 10 Age at First Child 17 Last Annual Exam/Provider 2007 Date of Last Colonoscopy Frequency of Cycle (Q days) 30 Most Recent Bone Density Sexually Active? Y Menses Monthly Y Date of Last Pap Smear Sexual Problems? N LMP Definite Obstetrics History GPAL:G 12 P 10 1 1 11 Type Value Full Term 10 Spontaneous 1 Premature 1 Living 11 Total 12 Immunizations Vaccine Type Date Status Note Provider Name and Address Organization Details Recorded Time Influenza, split virus, quadrivalent, preservative 02/27/20 23 cancelled patient objection Gerda Jackson DO [facility] [address], [place], [address], [facility] - [facility] 02/26/2023 11:18:58 Tdap 01/06/20 15 completed Ariela Huang [facility] 11/21/2022 11:13:06 Past Encounters Encounter ID Performer Location Encounter Start Date Encounter Closed Date Diagnosis/Indication Diagnosis SNOMED-CT Code Diagnosis ICD10 Code Diagnosis Note [id number] CRISTINA Harris [employer] [address] [place] [address] TEVIN Rojo [id number] 04/05/2016 09:55:32 04/05/2016 11:25:52 Normal 78220022 Z34.92 Gestation period, 20 weeks 30542563 Z3A.20 care: grand multiparity 839514943 O09.42 [id number] Gerda Jackson DO [place] [employer] [address] [place] [address] TEVIN Rojo [id number] 7 04/05/2016 09:57:10 04/05/2016 13:21:54 care: grand multiparity [id number] O09.42 Normal 6090135 2 Z34.92 Gestation period, 20 weeks 15408811 Z3A.20 [id number] Yara Ko DO [place] [employer] [address] [place] [address] TEVIN Rojo [id number] 7 05/10/2016 11:04:57 05/10/2016 12:41:52 Gestation period, 25 weeks 08844024 Z3A.25 screening 2437 71152 Z36 Normal 2603730 2 Z34.92 Grand multipara 94441328 Z64.1 [id number] ADI [place] [employer] [address] [place] [address] TEVIN Rojo [id number] 7 06/05/2016 09:45:00 06/05/2016 10:33:56 Gestation period, 29 weeks 36915741 Z3A.29 Normal 1240850 2 Z34.93 Varicose v eins of lower extremity 03137073 I83.93 Grand multipara 67821048 Z64.1 [id number] ADI [place] [employer] [address] [place] [address] TEVIN Rojo [id number] 7 06/18/2016 10:40:47 06/18/2016 11:22:03 Gestation period, 31 weeks 60250932 Z3A.31 care: grand multiparity 982047683 O09.43 [id number] ADI Wilburn [employer] [address] [place] [address] TEVIN Rojo [id number] 7 07/02/2016 10:14:01 07/02/2016 11:08:07 Grand multipara 06617341 Z64.1 High risk 4720 0007 O09.93 [id number] ADI Wilburn [employer] [address] [place] [address] TEVIN Rojo [id number] 7 07/16/2016 10:18:23 07/16/2016 10:59:47 Grand multipara [id number] Z64.1 screening 2437 08179 Z36 High risk 4720 0007 O09.93 Gestation period, 35 weeks 57205888 Z3A.35 [id number] ADI Wilburn [employer] [address] [place] [address] TEVIN Rojo [id number] 7 07/23/2016 09:40:06 07/23/2016 10:12:14 Multigravida of advanced maternal age 070194159 O09.523 Grand multipara 93788721 Z64.1 [id number] ADI Wilburn [employer] [address] [place] [address] TEVIN Rojo [id number] 7 07/30/2016 14:53:56 07/30/2016 15:36:26 Gestation period, 37 weeks 09173907 Z3A.37 Normal 4948502 2 Z34.93 [id number] ADI Wilburn [employer] [address] [place] [address] TEVIN Rojo [id number] 7 08/06/2016 15:25:40 08/06/2016 16:18:29 Gestation period, 38 weeks 11104029 Z3A.38 High risk 4720 0007 O09.93 Grand multipara 10959990 Z64.1 [id number] MD [place] [employer] [address] [place] [address] TEVIN Rjoo [id number] 7 08/06/2018 10:35:49 08/06/2018 13:04:58 Spotting per vagina in 817052358 O26.859 Missed AB confirmed per transabdom inal ultrasound . Patient declining advised pelvic exam for evaluation of other etiologies of spotting Missed miscarriage 44899 004 O02.1 Diagnosis and natural history reviewed. Condolence s given. Currently declining any surgical or medical interventi on, but concerned about risk of emergency given previous hemorrhage at home with her 7th baby. Risks and benefits of surgical/m edical or expectant management reviewed. Reasonable to give her 1 or 2 weeks for spontaneou s passage with close precaution s to call or come to hospital urgently if has heavy bleeding without completing tissue passage lasting more than 4 hours. they preferred this option. Set up with collection hat and specimen cup and has been advised to bring in any tissue she might pass as soon as possible. Previous blood type RH positive. advise 1 week follow-up visit but sooner if any heavy bleeding or pain or suspect completing miscarriag e sooner.Wou ld consider repeating ultrasound for transvagin al views if patient allows, prior to any medical or surgical interventi on although very good clarity of the transabdom inal pictures today [id number] 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 [address] [place] [address] TEVIN Rojo [id number] 7 10/27/2018 12:35:56 10/27/2018 14:26:41 Normal 13142015 Z34.92 Spotting p er vagina in 230531403 O26.851 Gestation period, 7 weeks 89827566 Z3A.01 [id number] 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 [address] [place] [address] TEVIN Rojo [id number] 7 11/23/2018 10:33:16 11/23/2018 12:45:54 Normal 05540655 Z34.92 screening 2437 57431 Z36.9 [id number] Lynette Vega MD [place] [employer] [address] [place] [address] TEVIN Rojo [id number] 7 02/04/2019 15:00:12 02/04/2019 16:02:56 High risk 31965403 O09.92 Gestation period, 21 weeks 83842452 Z3A.21 Placenta previa 68277291 O44.00 [id number] Patricia Gupta APRN [place] [employer] [address] [place] [address] TEVIN Rojo [id number] 7 03/05/2019 10:31:42 03/05/2019 11:56:37 Gestation period, 25 weeks 13016666 Z3A.25 Placenta previa 40385337 O44.02 High risk 4720 0007 O09.92 Gestation period, 21 weeks 78781235 Z3A.21 [id number] 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 [address] [place] [address] TEVIN Rojo [id number] 7 04/01/2019 08:42:26 04/01/2019 10:16:44 High risk 82051785 O09.93 Placenta previa 54095643 O44.03 Gestation period, 29 weeks 80282851 Z3A.29 Heartburn 45460065 R12 [id number] 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 [address] [place] [address] TEVIN Rojo [id number] 7 04/14/2019 09:19:27 04/14/2019 11:21:04 Placenta previa 78013007 O44.03 High risk 4720 0007 O09.93 Gastroesop hageal reflux disease 955657182 K21.9 Gestation period, 31 weeks 76491200 Z3A.31 [id number] 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 [address] [place] [address] TEVIN Rojo [id number] 7 04/28/2019 09:43:05 04/28/2019 11:04:45 High risk 13287083 O09.93 Placenta previa 15259958 O44.03 First episode of bleeing - brownish discharge Gestation period, 33 weeks 43491246 Z3A.33 [id number] Gerda Jackson DO [place] [employer] [address] [place] [address] TEVIN Rojo [id number] 7 04/29/2019 10:41:57 04/29/2019 16:23:01 Placenta previa 50459616 O44.03 First episode of bleeing - brownish discharge High risk 4720 0007 O09.93 Gestation period, 33 weeks 82196738 Z3A.33 [id number] Gerda Jackson DO [place] [employer] [address] [place] [address] TEVIN Rojo [id number] 7 05/03/2019 11:14:12 05/03/2019 12:06:40 Placenta previa 42650514 O44.03 First episode of bleeing - brownish discharge High risk 4720 0007 O09.93 Gestation period, 34 weeks 90885515 Z3A.34 [id number] CRISTINA Leal [employer] [address] [place] [address] TEVIN Rojo [id number] 7 10/13/2020 14:26:20 10/13/2020 15:46:39 Urine test positive 246039727 Z32.01 Maternal o besity complicating , childbirth and the puerperium, antepartum 2985553971 07 O99.210 High risk 4720 0007 O09.90 Past pregn chinyere history of placenta previa 478034438 Z87.59 Supervisio n of high risk with history of previous section done 1224445274 9106 O34.211 Multigravi da of advanced maternal age 276891655 O09.522 Past pregn chinyere history of delivery of macrosomal 4113886386 9102 Z87.59 [id number] 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 [address] [place] [address] TEVIN Rojo [id number] 7 10/19/2020 13:56:33 10/19/2020 15:14:29 Past history of delivery of macrosomal infant 6690302787 9102 Z87.59 Maternal o besity complicating , childbirth and the puerperium, antepartum 6140367397 07 O99.210 High risk 4720 0007 O09.90 Past pregn chinyere history of placenta previa 780840841 Z87.59 Supervisio n of high risk with history of previous section done 1674242891 9106 O34.211 Multigravi da of advanced maternal age 622298101 O09.522 Gestation period, 16 weeks 82870736 Z3A.16 screening 2437 01135 Z36.9 [id number] Gerda Jackson DO [place] [employer] [address] [place] [address] TEVIN Rojo [id number] 7 12/22/2020 09:34:30 12/22/2020 11:06:05 Supervision of high risk with history of previous section done 5168847145 9106 O34.211 Multigravi da of advanced maternal age 908711760 O09.522 Past pregn chinyere history of delivery of macrosomal infant 8971428644 9102 Z87.59 Gestation period, 26 weeks 18317924 Z3A.26 [id number] Gerda Jackson DO [place] [employer] [address] [place] [address] TEVIN Rojo [id number] 7 12/27/2020 09:06:08 12/27/2020 10:31:47 Supervision of high risk with history of previous section done 3089207288 9106 O34.211 Multigravi da of advanced maternal age 780984809 O09.522 Past pregn chinyere history of delivery of macrosomal 9337615849 9102 Z87.59 Gestation period, 26 weeks 30445826 Z3A.26 [id number] Gerda Jackson DO [place] [employer] [address] [place] [address] TEVIN Rojo [id number] 7 01/26/2021 09:52:20 01/26/2021 11:12:18 Supervision of high risk with history of previous section done 6987065463 9106 O34.211 Multigravi da of advanced maternal age 162463765 O09.522 Past pregn chinyere history of delivery of macrosomal 1984765683 9102 Z87.59 Gestation period, 30 weeks 98224563 Z3A.30 Gestationa l diabetes mellitus 01224425 O24.419 Proteinuria 62040842 R80 .9 [id number] MD Socorro [place] [employer] [address] [place] [address] [place] [id number] 7 02/12/2021 15:35:32 02/12/2021 16:14:10 Supervision of high risk with history of previous section done 6997889664 9106 O34.211 Multigravi da of advanced maternal age 790044802 O09.522 Past pregn chinyere history of delivery of macrosomal infant 3868575764 9102 Z87.59 Gestationa l diabetes mellitus 91710831 O24.419 Gestation period, 33 weeks 73811641 Z3A.33 [id number] 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 [address] [place] [address] TEVIN Rojo [id number] 7 02/19/2021 15:26:17 02/19/2021 15:57:26 Supervision of high risk with history of previous section done 3996252418 91 O34.211 Multigravi da of advanced maternal age 730945280 O09.522 Past pregn chinyere history of delivery of macrosomal infant [id number] 9102 Z87.59 Gestationa l diabetes mellitus 59908654 O24.419 Gestation period, 34 weeks 94255089 Z3A.34 [id number] 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 [address] [place] [address] TEVIN Rojo [phone] 7 02/28/2021 16:09:36 02/28/2021 17:10:16 Gestation period, 35 weeks 68541214 Z3A.35 Multigravi da of advanced maternal age 149160533 O09.522 High risk 4720 0007 O09.90 Supervisio n of high risk with history of previous section done [id number] 91 O34.562 [id number] 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 [address] [place] [address] TEVIN Rojo [phone] 7 03/06/2021 11:44:31 03/06/2021 12:18:37 Pre-surgery evaluation 920129191 Z01.818 Past pregn chinyere history of delivery of macrosomal infant 0400900138 9102 Z87.59 High risk 4720 0007 O09.90 Multigravi da of advanced maternal age 503544980 O09.522 Gestation period, 36 weeks 59148464 Z3A.36 Gestationa l diabetes mellitus 99157535 O24.419 - induced hypertension 14008516 O13.9 [id number] CRISTINA Tran TYPEWRITER RE[employer]IRER [address] [place] [address] T[place] Rojo [phone] 7 10/25/2022 10:25:00 10/25/2022 12:39:36 Routine care 048350532 Z34.91 Urine preg moon test positive 847268281 Z32.01 Past pregn chinyere history of gestational diabetes mellitus 836393477 Z86.32 Past pregn chinyere history of gestational hypertension 479003417 Z87.59 screening 2437 35627 Z36.9 Gestation period, 8 weeks 89479468 Z3A.08 Advanced m aternal age 140398238 O09.521 High risk 4720 0007 O09.521 Supervisio n of high risk with history of previous section done 6577819542 9106 O09.165 [id number] 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 [address] [place] [address] TEVIN Rojo [phone] 7 11/21/2022 11:05:43 11/21/2022 12:24:33 Past history of gestational diabetes mellitus 624260705 Z86.32 Past pregn chinyere history of gestational hypertension 169912997 Z87.59 Advanced m aternal age 431647022 O09.521 Supervisio n of high risk with history of previous section done 1381761857 9106 O09.899 Routine an tenatal care 192240999 Z34.81 Gestation period, 12 weeks 80566742 Z3A.12 screening 2437 50629 Z36.9 [id number] 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 [address] [place] [address] TEVIN Rojo [id number] 7 01/30/2023 15:32:02 01/30/2023 16:46:03 Gestation period, 22 weeks 72452782 Z3A.22 screening 2437 63008 Z36.9 Advanced m aternal age 645081134 O09.521 Supervisio n of high risk with history of previous section done 4278776418 9106 O09.149 [id number] 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 [address] [place] [address] TEVIN Rojo [phone] 7 02/26/2023 10:47:34 02/26/2023 11:17:41 screening 801447448 Z36.9 Advanced m aternal age 315997045 O09.521 Past pregn chinyere history of gestational diabetes mellitus 642404262 Z86.32 Past pregn chinyere history of gestational hypertension 436011008 Z87.59 Supervisio n of high risk with history of previous section done 4968546259 9106 O09.899 Gestation period, 25 weeks 35483389 Z3A.25 Administra tion of influenza vaccine 62003838 Z23 Influenza vaccine needed 8428215448 106 Z23 [id number] 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 [address] [place] [address] TEV[place] Rojo [phone] 7 03/21/2023 10:20:50 03/21/2023 11:28:43 screening 756359012 Z36.9 Advanced m aternal age 064121974 O09.521 Past pregn chinyere history of gestational diabetes mellitus 418644837 Z86.32 Past pregn chinyere history of gestational hypertension 994993842 Z87.59 Supervisio n of high risk with history of previous section done 9703636094 9106 O09.899 Gestation period, 29 weeks 61762218 Z3A.29 [id number] 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 [address] [place] [address] TEV[place] Rojo 28108-059 7 04/07/2023 11:20:52 04/07/2023 11:46:43 screening 017458445 Z36.9 Advanced m aternal age 759110896 O09.521 Past pregn cihnyere history of gestational diabetes mellitus 142355194 Z86.32 Past pregn chinyere history of gestational hypertension 797939723 Z87.59 Supervisio n of high risk with history of previous section done 0400485583 9106 O09.899 Gestation period, 31 weeks 71304959 Z3A.31 History of atrial fibrillation 495106728 Z86.79 [id number] 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 [address] [facility] [place] Rojo [id number] 7 04/28/2023 13:33:18 04/28/2023 13:59:30 Advanced maternal age 068892202 O09.521 Past pregn chinyere history of gestational diabetes mellitus 481839295 Z86.32 Past pregn chinyere history of gestational hypertension 796494206 Z87.59 Supervisio n of high risk with history of previous section done 8626528650 9106 O09.899 History of atrial fibrillation 983056501 Z86.79 Gestation period, 34 weeks 20636403 Z3A.34 [id number] 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 [address] [place] [address] TEVIN Rojo [id number] 7 05/09/2023 10:27:28 05/09/2023 10:52:45 Pre-surgery evaluation 065646978 Z01.818 Advanced m aternal age 729707875 O09.523 Supervisio n of high risk with history of previous section done 6574105354 9106 O09.899 Gestation period, 36 weeks 32253716 Z3A.36 History of atrial fibrillation 146226361 Z86.79 Health Concerns Section Related Observation LastModified by Organization Detai ls LastModified Time None Recorded Concern Status LastModified by Organization Details LastModified Time None Recorded Advance Directives Directive N: Payers Insurance Date Sequence Insurance Name Policy Number Policy Dunham Covered Member ID Dunham Member ID Guarantor Name 10/19/2020 SLIDING FEE SCHEDULE - DISCOUNT Meagan Moreno Notes Date Note Type Note Provider Name and Address Organization Details Recorded Time 02/26/2023 text/html ob visit Gerda Jackson DO [address], [place], [address], [place] - [facility] 02/26/2023 11:29:48 03/21/2023 text/html See OB flowsheet Gerda Jackson DO [address], [place], [address], [place] - [facility] 03/21/2023 11:07:12 04/07/2023 text/html see OB flow sheet Gerda Jackson DO [address], [place], [address], [place] - [facility] 04/07/2023 11:50:40 04/28/2023 text/html ob visit Gerda Jackson DO [address], [place], [address], [place] - [facility] 04/28/2023 17:38:41 05/09/2023 text/html OB visit Gerda Jackson DO [address], [place], [address], [facility] - [facility] 05/10/2023 17:40:18 OBGyn Episode Ob Episode Information Episode Created Date Number of Fetuses Patient Bloodtype Patient rh Status Prepregnancy Weight lbs Domestic Partner Domestic Partner Phone Father Name Machine Stuffer Automatic Status 10/26/19 23 1 O Positive 158 Geremias Moreno CLOSED Fetus Data First Name Last Name Admitted to NICU Weight (g) Sex Living Outcome Pediatric Complications Fetus ID Race Codes Race Delivery Type 2834.95 M true Full Term 71120 2106-3 White Problems Problem Notes [facility]- ho memakerbreast/no circ/repeat cs03/05/2003 42 wks in Llepxkwvblgf74/29/2005 41wks home birth07/10/2006 40wks home birth09/26/2007 home birth08/01/2008 37wks home birth05/11/2011 40wks home birth08/05/2014 40wks home birth08/09/2016 38.4wks SROM epidural SVD107/18/2018 36.1wks P c/s at [facility] for placenta gceuul9603/12/2021 37.3wks R c/s AMA, GDM, gHTN per SMOULTRASOUNDS:10/25/22 US: CRL 1.81cm, FHR 180, JOSE A consistent w/LMP/AD11/21/22: Viability, FCA. Unable to auscultate FHT with doppler/SMO02/04/23: 22wk GA/bay: complete, normal, vertex, male, anterior placenta, CL >4cm, no funneling/SMO Problem Name Start Date End Date Resolution Snomed Code Not e Supervision of high risk with history of previous section done 10/27/2022 [id number] [x] 05/16 w/ SMO High risk 10/27/2022 29129144 Past history of gestational diabetes mellitus 10/27/2022 616277722 [ ]Early 1hr gt t: Past history of gestational hypertension 10/27/2022 242958067 [x]baseline pre -e labs:[ ] ASA Advanced maternal age 10/27/2022 957749284 [ ]twice weekly NST at 32wks[ ]weekly AFIdeclines twice weekly but will do weekly Active immunization 94776909 declined all screening 942621673 declined all Atrial fibrillation 34716261 Jose A Calculation Initial Jose A Date Initial Exam Date Initial Exam Provider Initial Ultrasound Date Last Menstrual Period Date Ultra Sound Weeks Gestation 06/05/2023 10/25/2022 08/29/2022 0 Eighteen To Twenty Week Jose A Update Ultra Sound Date Fundal Height At Umbil Quickening Date Ultra Sound Latest Weeks Gestation Final Jose A Confirmed By Final Jose A Confirmed Date Final Jose A Date Ultra Sound Latest Days Gestation 0 06/05/19 24 0 Pre-eileen Flowsheet Flowsheet Date 10/25/2022 Ferrell Score Blood Edema Fundus Height Fundus Units Glucose Ketones Leukocytes Nitrite Labor Signs Protein Cervic Dilation Cervic Effacement Cervic Station neg none none negative none Negative none neg Type Weight in lbs Pre/Post Dialysis Refused With clothes 158.564742513097 BP Diastolic BP Location Tested BP Systolic BP Type 78 120 sitting Fetus Heart Rate Present Fetus Movement A No Comments Meagan is here for ob hx appt. Planned . Hx of gHTN and GDM. Baseline pre-e labs today. She is ok w/early 1hr gtt. Desires repeat c/s, no contraception afterwards. Hx of c/s x2. Discussed AMA, she would like to do once weekly NSTs instead of twice. Dating u/s today, JOSE A consistent w/LMP. Declined additional screening and immunizations. She has no q/c today. Taking PNV. Occasional nausea but manageable. Discussed course of care. No q/c today. RTC 4wks for obpe, sooner if needed. Meagan declined MFM referral.AD Flowsheet Date 11/21/2022 Ferrell Score Blood Edema Fundus Height Fundus Units Glucose Ketones Leukocytes Nitrite Labor Signs Protein Cervic Dilation Cervic Effacement Cervic Station neg none 12 wks none negative none Negative Other (see comments ) neg Type Weight in lbs Pre/Post Dialysis Refused With clothes 160.000480236480 BP Diastolic BP Location Tested BP Systolic BP Type 64 106 sitting Fetus Heart Rate Present A US Present Fetus Movement Comments obp, neg leuks, neg nits, no lof, no vb.JRM +FHT on US. Discussed BP which she feels is low and occasionally feels lightheaded and dizzy but she has also had issues with BS being in the 80's and makes her feel bad. She takes BS from time to time after meals and it is about 120 to 130. Recommend closer monitoring. Declines supplies or logs. Will follow up in 4 weeks to see how she is feeling./SMO Flowsheet Date 01/30/2023 Ferrell Score Blood Edema Fundus Height Fundus Units Glucose Ketones Leukocytes Nitrite Labor Signs Protein Cervic Dilation Cervic Effacement Cervic Station neg none 22 wks none negative none Negative none neg Type Weight in lbs Pre/Post Dialysis Refused With clothes 184.417453770026 BP Diastolic BP Location Tested BP Systolic BP Type 76 110 sitting Fetus Heart Rate Present A US Present Fetus Movement A Yes Comments afm, no vb or lof, pt doing well, voiced no issues or concerns at this time - SNOW Reviewed US findings -complete, normal, male - surprised it was a boy because of the pattern of her children. She is not sure if this is going to be the last one. Recommend ASA 81mg. Doing well, no complaints. F/U 6 weeks for 1h GTT/SMO Flowsheet Date 02/26/2023 Ferrell Score Blood Edema Fundus Height Fundus Units Glucose Ketones Leukocytes Nitrite Labor Signs Protein Cervic Dilation Cervic Effacement Cervic Station trace none 25 wks none negative none Negative Other (see comments ) neg Type Weight in lbs Pre/Post Dialysis Refused Stated 190.045241757653 BP Diastolic BP Location Tested BP Systolic BP Type 78 110 sitting Fetus Heart Rate Present A Present Fetus Movement A Yes Comments no lof, no vb, afm. she stat es she is having mild intermittent cramping and light contractions. - myriamwilliamsroselyn Discussed cramping and occasional contractions. Encouraged hydration. Discussed BS - seems to be related to tachycardia - was recommended to be on a Beta Kirk as she was on flecainide before - will talk to can marker to start Beta Kirk. BS is better controlled with apple cider vinegar. Occasionally will be in the low 150's - recommend checking 2h after meals and keep a record to review at next visit. She does not want to take medication every day for BS. Discussed that she will most likely have a tubal with this c/s due to heart issues but it makes her sad as she would have many more children. F/U 3 weeks - declines 1h GTT/SMO Flowsheet Date 03/21/2023 Ferrell Score Blood Edema Fundus Height Fundus Units Glucose Ketones Leukocytes Nitrite Labor Signs Protein Cervic Dilation Cervic Effacement Cervic Station neg none 29 wks none small none Negative none neg Type Weight in lbs Pre/Post Dialysis Refused With clothes 194.025942691589 BP Diastolic BP Location Tested BP Systolic BP Type 74 116 sitting Fetus Heart Rate Present A Present Fetus Movement A Yes Comments no LOF, no VB, no issues/con cerns today. CB Other than being tired - doing okay. Does not feel like beta kirk controls heartrate as well as flecainide. Baby is active but she is worried that her BS and HR are affecting the baby. Discussed option of referral to MFM, declined. 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 Encouraged hydration. Discussed delivery - she would prefer 37 weeks, discussed that babies at 37 weeks may need transferred. She is hoping not but hoping to plan for a 37 week c/s. Will re-visit at next visit/SMO Flowsheet Date 04/07/2023 Ferrell Score Blood Edema Fundus Height Fundus Units Glucose Ketones Leukocytes Nitrite Labor Signs Protein Cervic Dilation Cervic Effacement Cervic Station neg none 32 cm none negative none Negative Cramping neg Type Weight in lbs Pre/Post Dialysis Refused With clothes 202.594428288478 BP Diastolic BP Location Tested BP Systolic BP Type 76 124 sitting Fetus Heart Rate Present A Present Fetus Movement A Yes Comments AFM, no VB, no LOF, c/o cram ping off and on./MR Cramping is intermittent, no contractions. 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 Reports BS is good if she watches what she eats - FBS is in the 80 - 90's, after meals is what it should be unless ice cream or other sweets. Did not bring BS log. Discussed importance of maintaining blood sugar log. Declines testing. History of afib - took flecainide prepregnancy and has transitioned to metroprolol. Medical record request sent. F/U 2 weeks/SMO Flowsheet Date 04/28/2023 Ferrell Score Blood Edema Fundus Height Fundus Units Glucose Ketones Leukocytes Nitrite Labor Signs Protein Cervic Dilation Cervic Effacement Cervic Station neg trace 35 cm none negative none Negative Georges Garcia neg Type Weight in lbs Pre/Post Dialysis Refused With clothes 207.509808874935 BP Diastolic BP Location Tested BP Systolic BP Type 74 116 sitting Fetus Heart Rate Present A Present Fetus Movement A Yes Comments AFM, no VB, no LOF, c/o Brax ton Garcia, no other concerns./MR She has no complaints other than BH contractions and she is not sure that she is going to make it to 37 weeks. Given labor precautions. F/U as scheduled. Declines any APT./SMO Flowsheet Date 05/09/2023 Ferrell Score Blood Edema Fundus Height Fundus Units Glucose Ketones Leukocytes Nitrite Labor Signs Protein Cervic Dilation Cervic Effacement Cervic Station neg 1+ 36 cm none negative none Negative Cramping neg Type Weight in lbs Pre/Post Dialysis Refused With clothes 210.062150201175 BP Diastolic BP Location Tested BP Systolic BP Type 78 118 sitting Fetus Heart Rate Present A Present Fetus Movement A Yes Comments AFM, no VB, no LOF, c/o cram ping with no other issues./MR Does not want a cervical exam. Discussed labor precautions. Reviewed repeat c/s - considering a tubal. She and her will continue to discuss. Discussed her Afib history with Dr. Montes De Oca, will need EKG the morning of surgery but no additional intervention necessary. ECHO in May 2022 in chart. Discussed risks of infant needed transferred at 37 week delivery. She verbalized understanding and previous baby was born at 37 weeks with no complications or need for transfer. F/U /SMO Menstrual History Last Menstrual Date Menses Monthly On Bcp Conception Prior Menses Frequency Hcg Plus Date Menarche Onset Age 0408/29/2022 true false Genetic Screening And Infection History Question Response Note Patient's Age Will Be 35 Years Or Older At Estim ated Date of Delivery true Thalassemia (New Zealander, Argentine, Mediterranean, Or Background): MCV < 80 false Neural Tube Defect (Meningomyelocele, Spina Bifi da, Or Anencephaly) false Congenital Heart Defect false Down Syndrome false Jj-Sachs (eg, Roman Catholic, Cajun, Gibraltarian-American) f alse Lion Disease false Sickle Cell Disease Or Trait () false Hemophilia Or Other Blood Disorders false Muscular Dystrophy false Cystic Fibrosis false Hague's Chorea false Mental Retardation/Autism false If Yes, Was Person Tested For Fragile X? false Other Inherited Genetic Or Chromosomal Disorder false Maternal Metabolic Disorder (eg, Type 1 Diabetes , PKU) false Patient Or Baby's Father Had A Child With Defects Not Listed Above false Recurrent Loss, Or A Stillbirth false Medications (including Suppl ements, Vitamins, Herbs, OTC Drugs), Illicit/Recreational Drugs, Alcohol false If Yes, Agent(s) And Strength/Dosage false Any Other Genetic History false Live With Someone With TB Or Exposed To TB false Patient Or Partner Has History Of Genital Herpes false Rash Or Viral Illness Since Last Menstrual Perio d false History Of STD, Gonorrhea, Chlamydia, HPV, Syphi lis false Other Infection History false History of HIV false History of Hepatitis false Prior GBS-infected child false Recent Travel Outside of Country false Plans and Education First Trimester Discussed Date Discussion Item Discussion Note Discuss ed By 10/27/2022 Desire for planned e210/27/2022 Alcohol no e210/27/2022 Illicit/recreational drugs no rich duke24 10/27/2022 Nutrition discussed 10/27/2022 Weight gain counseling discussed 10/27/2022 Intimate Partner Violence no ad uke210/27/2022 Unstable Housing no e210/27/2022 Use of any medicatio ns (including supplements, vitamins, herbs, or OTC drugs) discussed 10/27/2022 Avoidance of saunas or hot tubs discussed 10/27/2022 Indications for ultrasonography discussed 10/27/2022 Comminucation Barriers no aduke 24 10/27/2022 Anticipated course of care discu ssed 10/27/2022 Toxoplasmosis precautions (cats/raw meat) discussed 10/27/2022 Sexual activity discussed 10/27/2022 Exercise discussed 10/27/2022 Tobacco/smoking cess ation counseling (ask, advise, assess, assist, and arrange) no e210/27/2022 Barriers to Care no 10/27/2022 Environmental/work hazards discussed a duke24 10/27/2022 Depression/Anxiety ( should be performed at least once during period) no 10/27/2022 WIC/Hands Referral declined 10/27/2022 Nutrition counseling ; special diet; dietary precautions (mercury, listeriosis) discussed 10/27/2022 Dental Care / Refer to Dentist discussed 10/27/2022 Seat belt use discussed 10/27/2022 Childbirth classes/hospital facilities di scussed 10/27/2022 discussed 10/27/2022 Screening for aneuploidy discussed rocky Second Trimester Discussed Date Discussion Item Discussion Note Discuss ed By Third Trimester Discussed Date Discussion Item Discussion Note Discuss ed By Delivery Information Delivery Date Delivery Type Labor Anesthesia Weeks Gestation Incision Type Labor Labor Length Hrs Delivered By Post Complications Tubal Sterilization Discharge Date Comments None Regional-Sp inal 37.1 Low Transvers e false Gerda Jackson DO None true 05/16/2023 Repeat c/s with BS, LST inc per SMO Discharge Information Feeding Method Contraceptive Method Maternal HG B and HCT Levels Breast BS Ob Episode Information Episode Created Date Number of Fetuses Patient Bloodtype Patient rh Status Prepregnancy Weight lbs Domestic Partner Domestic Partner Phone Father Name Machine Stuffer Automatic Status 04/01/20 19 1 O Positive CLOSED Fetus Data First Name Last Name Admitted to NICU Weight (g) Sex Living Outcome Pediatric Complications Fetus ID Race Codes Race Delivery Type [id number] Problems Problem Notes AmishDue to bleeding from pr kayli (brownish discharge for days), transferred care [place] [facility] Problem Name Start Date End Date Resolution Snomed Code Not e Placenta previa [id number] comp lete High risk 46249528 Jose A Calculation Initial Jose A Date Initial Exam Date Initial Exam Provider Initial Ultrasound Date Last Menstrual Period Date Ultra Sound Weeks Gestation 06/13/2019 04/01/2019 10/27/2018 09/07/2018 6 Eighteen To Twenty Week Jose A Update Ultra Sound Date Fundal Height At Umbil Quickening Date Ultra Sound Latest Weeks Gestation Final Jose A Confirmed By Final Jose A Confirmed Date Final Jose A Date Ultra Sound Latest Days Gestation 02/05/20 19 21 [email or web address] 04/01/2019 06/13/19 20 3 Pre-eileen Flowsheet Flowsheet Date 04/01/2019 Ferrell Score Blood Edema Fundus Height Fundus Units Glucose Ketones Leukocytes Nitrite Labor Signs Protein Cervic Dilation Cervic Effacement Cervic Station none 30 cm Other (see comments ) Type Weight in lbs Pre/Post Dialysis Refused With clothes 198.707804601546 BP Diastolic BP Location Tested BP Systolic BP Type 60 120 sitting Fetus Heart Rate Present A Present Fetus Movement A Yes Comments AFM, no lof or vb.knt Review ed US findings: posterior placenta, marginal previa persists. Discussed c/s delivery at 36 to 37 6/7 weeks. Heartburn no longer controlled with TUMS, rx Ranitidine. F/U 2 weeks with US, no intercourse recommended. Bleeding precautions [place] Flowsheet Date 04/14/2019 Ferrell Score Blood Edema Fundus Height Fundus Units Glucose Ketones Leukocytes Nitrite Labor Signs Protein Cervic Dilation Cervic Effacement Cervic Station none 31 wks Other (see comments ) Type Weight in lbs Pre/Post Dialysis Refused With clothes 201.739070112278 BP Diastolic BP Location Tested BP Systolic BP Type 70 124 sitting Fetus Heart Rate Present A Present Fetus Movement A Yes Comments AFM, no lof or vb, no urine, c/o increased cramping and BH ctx.knt Discussed US findings - complete previa. Discussed scheduling c/s and having blood available. She lives a mile from a phone. Discussed delivering early with steroids. Verbalized understanding of importance of close follow up and if any bleeding - pink discharge or spotting - needs to be seen. Her questions were answered. Scheduled c/s and appointments the week of surgery for steroids. f/u 2 to 3 weeks - sooner if contractions become painful or bleeding occurs Flowsheet Date 04/28/2019 Ferrell Score Blood Edema Fundus Height Fundus Units Glucose Ketones Leukocytes Nitrite Labor Signs Protein Cervic Dilation Cervic Effacement Cervic Station 33 wks Other (see comments ) Type Weight in lbs Pre/Post Dialysis Refused BP Diastolic BP Location Tested BP Systolic BP Type Fetus Heart Rate Present A Present Fetus Movement A Yes Comments Meagan presents acutely with c omplaints of brownish discharge that started this morning about 3am with contractions and pressure. Since the contractions seemed to resolve and the discharge did not get heavier, she elected to stay home until she had to come to town to take her daughter to the eye doctor. Exam: moderate amount of brown discharge consistent with old blood in vault, no bright red bleeding or clots at os. Uterus non-tender. NST reactive with rare contraction. Patient denies contractions. Received dose of betamethasone at 10:30. Lengthy discussion with Meagan and her recommending that she go to for prolonged monitoring, possibly until delivery due to previa. She and her had several scenarios that they considered from staying in a hotel in [place] to [place]. Ultimately agreed to go to . They said they would go sometime today. If for some reason, they chose not to go, she agreed to return to our office for second dose of Celestone and NST. I spoke to Dr. Morillo at about her arriving sometime in the next 24 hours/SMOAddendum: patient has chosen not to go to [place], she is going to stay in a motel here in [place] - she will follow up tomorrow with 2nd betamethasone and an NST, sent Procardia for symptomatic relief of contractions/SMO Flowsheet Date 04/29/2019 Ferrell Score Blood Edema Fundus Height Fundus Units Glucose Ketones Leukocytes Nitrite Labor Signs Protein Cervic Dilation Cervic Effacement Cervic Station none 33 wks Other (see comments ) Type Weight in lbs Pre/Post Dialysis Refused With clothes 201.221433947421 BP Diastolic BP Location Tested BP Systolic BP Type 76 110 sitting Fetus Heart Rate Present A Present Fetus Movement A Yes Comments AFM, no lof, brown discharge , no urine, Celestone inj given, NST. knt NST reactive, no contractions. She has had contractions in the evening. Discussed with Dr. Morillo, she recommended cervical length. CL > 4cm. She is staying at the [facility] and the plan is for her to call 911 if she starts bleeding, call the hospital and then the doctor healthcare economics consultant and OR crew will be called in. Reiterated recommendation to go to but she and her have decided that staying near [facility] is the best option for them. Discussed previa bleeding behavior and risks of for baby and mom. Questions answered and they will stay in [place]. If no worsening of brown discharge or bleeding, will continue delivery plan for 09/29 with c/s. Will see twice weekly with NSTs. Appointment scheduled for Friday with NST/SMO Flowsheet Date 05/03/2019 Ferrell Score Blood Edema Fundus Height Fundus Units Glucose Ketones Leukocytes Nitrite Labor Signs Protein Cervic Dilation Cervic Effacement Cervic Station 2+ none 34 wks none negative none Negative Other (see comments ) neg Type Weight in lbs Pre/Post Dialysis Refused With clothes 202.273180917420 BP Diastolic BP Location Tested BP Systolic BP Type 82 112 sitting Fetus Heart Rate Present A Present Fetus Movement A Yes Comments BI per SMO for NST/visit, af m, neg leuks, mod bld, neg nits, no lof, no vb, c/o lots of pressure that started yesterday with irregular cntrx..JRM Overall doing well. Brownish discharge has resolved. NST reactive, no contractions. Patient reports pressure but contractions have resolved. Discussed going to tertiary care center - her 's family member shared their story of a previa and Meagan and her are concerned and ready to go to a tertiary care center for all it's resources. Notified Dr. Godoy of patient's decision. F/U as needed Menstrual History Last Menstrual Date Menses Monthly On Bcp Conception Prior Menses Frequency Hcg Plus Date Menarche Onset Age 0409/07/2018 Genetic Screening And Infection History Question Response Note Patient's Age Will Be 35 Years Or Older At Estim ated Date of Delivery false Thalassemia (New Zealander, Argentine, Mediterranean, Or Background): MCV < 80 false Neural Tube Defect (Meningomyelocele, Spina Bifi da, Or Anencephaly) false Congenital Heart Defect false Down Syndrome false Jj-Sachs (eg, Roman Catholic, Cajun, Gibraltarian-American) f alse Lion Disease false Sickle Cell Disease Or Trait () false Hemophilia Or Other Blood Disorders false Muscular Dystrophy false Cystic Fibrosis false Latosha's Chorea false Mental Retardation/Autism false If Yes, Was Person Tested For Fragile X? false Other Inherited Genetic Or Chromosomal Disorder false Maternal Metabolic Disorder (eg, Type 1 Diabetes , PKU) false Patient Or Baby's Father Had A Child With Defects Not Listed Above false Recurrent Loss, Or A Stillbirth false Medications (including Suppl ements, Vitamins, Herbs, OTC Drugs), Illicit/Recreational Drugs, Alcohol false If Yes, Agent(s) And Strength/Dosage false Any Other Genetic History false Live With Someone With TB Or Exposed To TB false Patient Or Partner Has History Of Genital Herpes false Rash Or Viral Illness Since Last Menstrual Perio d false History Of STD, Gonorrhea, Chlamydia, HPV, Syphi lis false Other Infection History false History of HIV false History of Hepatitis false Prior GBS-infected child false Recent Travel Outside of Country false Delivery Information Delivery Date Delivery Type Labor Anesthesia Weeks Gestation Incision Type Labor Labor Length Hrs Delivered By Post Complications Tubal Sterilization Discharge Date Comments 9 None Regional-Sp inal 36.[address] e false Dr Melgoza Primary c/s at [facility] for complete placental previa, Discharge Information Feeding Method Contraceptive Method Maternal HG B and HCT Levels Ob Episode Information Episode Created Date Number of Fetuses Patient Bloodtype Patient rh Status Prepregnancy Weight lbs Domestic Partner Domestic Partner Phone Father Name Machine Stuffer Automatic Status 10/14/19 21 1 CLOSED Fetus Data First Name Last Name Admitted to NICU Weight (g) Sex Living Outcome Pediatric Complications Fetus ID Race Codes Race Delivery Type , Spontane ous [id number] Jose A Calculation Initial Jose A Date Initial Exam Date Initial Exam Provider Initial Ultrasound Date Last Menstrual Period Date Ultra Sound Weeks Gestation 0 Eighteen To Twenty Week Jose A Update Ultra Sound Date Fundal Height At Umbil Quickening Date Ultra Sound Latest Weeks Gestation Final Jose A Confirmed By Final Jose A Confirmed Date Final Jose A Date Ultra Sound Latest Days Gestation 0 0 Menstrual History Last Menstrual Date Menses Monthly On Bcp Conception Prior Menses Frequency Hcg Plus Date Menarche Onset Age Delivery Information Delivery Date Delivery Type Labor Anesthesia Weeks Gestation Incision Type Labor Labor Length Hrs Delivered By Post Complications Tubal Sterilization Discharge Date Comments 9 7 sab at home, by lmp she was 11.1 weeks but measured 7.6 weeks Discharge Information Feeding Method Contraceptive Method Maternal HG B and HCT Levels Ob Episode Information Episode Created Date Number of Fetuses Patient Bloodtype Patient rh Status Prepregnancy Weight lbs Domestic Partner Domestic Partner Phone Father Name Machine Stuffer Automatic Status 10/14/19 21 1 O Positive Geremias Moreno, white, 41 [employer] CLOSED Fetus Data First Name Last Name Admitted to NICU Weight (g) Sex Living Outcome Pediatric Complications Fetus ID Race Codes Race Delivery Type 2948.34 8 M true Full Term [id number] Problems Problem Notes previa with 2019 delivery at 36 weeks at , wants but does not want to go to Dating US at 16w6d: complete, normal, vertex, anterior placenta, CL>3.9, no funneling/SMO33 week growth scan (02/12/21) EFW 52.6%, MARYLU 16, Vertex, anterior placenta/SMO Problem Name Start Date End Date Resolution Snomed Code Not e Supervision of high risk with history of previous section done 10/13/2020 [id number] 36 w k Primary C/S in 2019 @ High risk care 10/13/2020 [id number] Multigravida of advanced maternal age 0510/13/2020 [id number] 35 y/o G11 Past history of delivery of macrosomal 10/13/2020 [id number] 2010 9#, 2014 9# 8oz, 2016 9# screening [id number] Declined genetic testing Maternal obesity complicating , childbirth and the puerperium, antepartum 10/13/2020 [id number] BMI: 30[x] A1c: 5.2 Transient hypertension of - not delivered [id number] Difficult to determine if GHTN due to elevated BP with headache at home but only had one episode of elevated BP in office Gestational diabetes mellitus [id number] Checked BS at h ome - diet controlled Jose A Calculation Initial Jose A Date Initial Exam Date Initial Exam Provider Initial Ultrasound Date Last Menstrual Period Date Ultra Sound Weeks Gestation 03/30/2021 10/13/2020 [email or web address] 06/23/2020 0 Eighteen To Twenty Week Jose A Update Ultra Sound Date Fundal Height At Umbil Quickening Date Ultra Sound Latest Weeks Gestation Final Jose A Confirmed By Final Jose A Confirmed Date Final Jose A Date Ultra Sound Latest Days Gestation 0 03/30/20 21 0 Pre-eileen Flowsheet Flowsheet Date 10/13/2020 Ferrell Score Blood Edema Fundus Height Fundus Units Glucose Ketones Leukocytes Nitrite Labor Signs Protein Cervic Dilation Cervic Effacement Cervic Station neg none 16 none negative none Negative none neg Type Weight in lbs Pre/Post Dialysis Refused With clothes 175.207582559069 BP Diastolic BP Location Tested BP Systolic BP Type 71 117 sitting Fetus Heart Rate Present A 156 Fetus Movement Comments obhx, no lof, no vb, decline s genetic testing, wants to have , I discussed with her that we don't do that and she wanted to talk with to help with this issue-ct //Meagan presents today for an OB Hx. She states this was not a planned , but is desired. Reviewed plan of care. She understands that we do not do at this facility. She would like to transfer to at 36 wks if this is possible. She does not thinking vaginal would be an issue since she is proven to +9 lbs. She is taking PNVs and tolerating them. No Q/C. F/U 1 wk for US and visit. Flowsheet Date 10/19/2020 Ferrell Score Blood Edema Fundus Height Fundus Units Glucose Ketones Leukocytes Nitrite Labor Signs Protein Cervic Dilation Cervic Effacement Cervic Station neg none 16 wks none negative none Negative none neg Type Weight in lbs Pre/Post Dialysis Refused With clothes 172.988138686222 BP Diastolic BP Location Tested BP Systolic BP Type 70 120 sitting Fetus Heart Rate Present A Present Fetus Movement A Yes Comments pt states noVb, no LOF, no C TX. pt has some nausea. //EV Reviewed US findings: complete, normal, vertex, anterior placenta, CL>3.9, no funneling. No issues. Would like to TOLAC - good candidate - unable to TOLAC at [facility] and declines . F/U at 28 weeks or sooner if necessary, will need to schedule repeat c/s/SMO Flowsheet Date 12/22/2020 Ferrell Score Blood Edema Fundus Height Fundus Units Glucose Ketones Leukocytes Nitrite Labor Signs Protein Cervic Dilation Cervic Effacement Cervic Station neg 26 cm none negative none Negative Other (see comments ) neg Type Weight in lbs Pre/Post Dialysis Refused With clothes 191.124851863234 BP Diastolic BP Location Tested BP Systolic BP Type 68 110 sitting Fetus Heart Rate Present A Present Fetus Movement A Yes Comments No vb, no lof, neg leuk, neg nits, states she has some occasional cramping.//BW Reports cramping is occasional. Concerned that blood sugar is an issue - taking it at home from time to time. A little concerned that it is 90 in the morning and after eating has been as high as 150's. Given log to start logging and will review in one week. Taking PNV. F/U 1 week to review BS log/SMO Flowsheet Date 12/27/2020 Ferrell Score Blood Edema Fundus Height Fundus Units Glucose Ketones Leukocytes Nitrite Labor Signs Protein Cervic Dilation Cervic Effacement Cervic Station neg none 28 cm none negative none Negative none neg Type Weight in lbs Pre/Post Dialysis Refused With clothes 191.807616488047 BP Diastolic BP Location Tested BP Systolic BP Type 80 124 sitting Fetus Heart Rate Present A Present Fetus Movement A Yes Comments pt states no VB, no LOF, no CTX. pt states AFM. pt ate breakfast so 1 hr not done. //EV Overall doing well. Removed BS log - excellent with dietary modifications. Recommend continuing to monitoring FBS daily and one 2h PP a day. No additional complaints. Denies heartburn or constipation. Would like to schedule repeat c/s - will be able to at next visit with February schedule available. F/U 4 weeks or sooner if BS is abnormal/SMO Flowsheet Date 01/26/2021 Ferrell Score Blood Edema Fundus Height Fundus Units Glucose Ketones Leukocytes Nitrite Labor Signs Protein Cervic Dilation Cervic Effacement Cervic Station neg none 31 cm none negative none Negative Other (see comments ) 3+ Type Weight in lbs Pre/Post Dialysis Refused With clothes 194.970567308342 BP Diastolic BP Location Tested BP Systolic BP Type 94 136 sitting 68 108 sitting 74 112 sitting Fetus Heart Rate Present A Present Fetus Movement A Yes Comments pt states no VB, no LOF, no CTX. pt states AFM. //EV Overall doing well. Having issues with morning sickness and not tolerating fluids well. Declines medication. Due to protein in urine, will do preE labs and send urine for culture. Reports BS is good as long as I watch what I eat . Patient is a gestational diabetic - using apple cider vinegar water to decrease BS. F/U 2 weeks with US for growth/SMO Flowsheet Date 02/12/2021 Ferrell Score Blood Edema Fundus Height Fundus Units Glucose Ketones Leukocytes Nitrite Labor Signs Protein Cervic Dilation Cervic Effacement Cervic Station none Type Weight in lbs Pre/Post Dialysis Refused With clothes 195.473329925417 BP Diastolic BP Location Tested BP Systolic BP Type Fetus Heart Rate Present A Present Fetus Movement A Yes Comments Patient Reports all fastings are in the 80s. She says that her 1 hour postprandials are in the 140s to 150s but she does not have idea how often that is the case. I encouraged her to use some sort of log to track her sugars more accurately so that we can help her manage them if she is in need of management. She feels that vinegar is helpful for control of her postprandial hyperglycemia. I explained that medications are often needed and used in these cases to ensure that the baby has a healthy outcome after delivery. I reviewed ultrasound results with her. Follow-up 1 week with glucose log, sooner as needed. /mjs Flowsheet Date 02/19/2021 Ferrell Score Blood Edema Fundus Height Fundus Units Glucose Ketones Leukocytes Nitrite Labor Signs Protein Cervic Dilation Cervic Effacement Cervic Station neg none 35 cm none negative none Negative Other (see comments ) neg Type Weight in lbs Pre/Post Dialysis Refused With clothes 197.350126495339 BP Diastolic BP Location Tested BP Systolic BP Type 78 116 sitting Fetus Heart Rate Present A Present Fetus Movement A Yes Comments pt states no VB, no LOF. michael e irregular CTX. pt states AFM. //EV Reviewed BS log - overall excellent. She reports that the 2 elevated were when she had dessert. (150's) otherwise less than 120 and FBS<90. Reports good movement. She reports having a headache and elevated BP at home recently. Took cream of amaris and BP went away. Recommend bringing BP cuff to next visit to compare results. Discussed delivery planning, she is hoping sooner than later. Denies nausea or heartburn. F/U 1 week to assess BP and BS/SMO Flowsheet Date 02/28/2021 Ferrell Score Blood Edema Fundus Height Fundus Units Glucose Ketones Leukocytes Nitrite Labor Signs Protein Cervic Dilation Cervic Effacement Cervic Station trace none 35 wks none negative none Negative Other (see comments ) neg 1cm 50% -2 Type Weight in lbs Pre/Post Dialysis Refused Preoperative 198.547643563995 BP Diastolic BP Location Tested BP Systolic BP Type 74 110 sitting Fetus Heart Rate Present A Present Fetus Movement A Yes Comments No LOF, No VB, No Cramps. PT says she is having a lot of CTX that are painful. Pt says the baby's movements have decreased some. Sergo Did not bring BS or BP log. She would like to be scheduled for repeat c/s as soon as possible. 37 weeks is reasonable with her inconsistent BS and BP and AMA. Will schedule on Friday. Given labor precautions. Exam: /2, ballotable. F/U 1 week/SMO Flowsheet Date 03/06/2021 Ferrell Score Blood Edema Fundus Height Fundus Units Glucose Ketones Leukocytes Nitrite Labor Signs Protein Cervic Dilation Cervic Effacement Cervic Station neg none 38 cm none negative none Negative Other (see comments ) neg Type Weight in lbs Pre/Post Dialysis Refused With clothes 194.850598466392 BP Diastolic BP Location Tested BP Systolic BP Type 78 122 sitting Fetus Heart Rate Present A Present Fetus Movement A Yes Comments pt states no VB, no LOF, no CTX. pt states AFM. //EV Reports BP and BS good. Discussed contractions - irregular - seems to slowing down. Other than being tired, doing well. Taking PNV and other supplements. F/U as scheduled for c/s - declines tubal/SMO Menstrual History Last Menstrual Date Menses Monthly On Bcp Conception Prior Menses Frequency Hcg Plus Date Menarche Onset Age 0106/23/2020 true Genetic Screening And Infection History Question Response Note Patient's Age Will Be 35 Yea rs Or Older At Estimated Date of Delivery true self 35 and fob 41 Thalassemia (New Zealander, Argentine, Mediterranean, Or Background): MCV < 80 false Neural Tube Defect (Meningom yelocele, Spina Bifida, Or Anencephaly) false Congenital Heart Defect false Down Syndrome false Jj-Sachs (eg, Roman Catholic, Cajun, Gibraltarian-American) f alse Lion Disease false Sickle Cell Disease Or Trait () false Hemophilia Or Other Blood Disorders false Muscular Dystrophy false Cystic Fibrosis false Latosha's Chorea false Mental Retardation/Autism false If Yes, Was Person Tested For Fragile X? false Other Inherited Genetic Or Chromosomal Disorder false Maternal Metabolic Disorder (eg, Type 1 Diabetes , PKU) false Patient Or Baby's Father Had A Child With Defects Not Listed Above false Recurrent Loss, Or A Stillbirth false Medications (including Suppl ements, Vitamins, Herbs, OTC Drugs), Illicit/Recreational Drugs, Alcohol false If Yes, Agent(s) And Strength/Dosage false Any Other Genetic History false Live With Someone With TB Or Exposed To TB false Patient Or Partner Has History Of Genital Herpes false Rash Or Viral Illness Since Last Menstrual Perio d false History Of STD, Gonorrhea, Chlamydia, HPV, Syphi lis false Other Infection History false History of HIV false History of Hepatitis false Prior GBS-infected child false Recent Travel Outside of Country false Plans and Education First Trimester Discussed Date Discussion Item Discussion Note Discuss ed By 10/13/2020 Desire for Yes [email or web address] 10/13/2020 Alcohol no [email or web address] 10/13/2020 Illicit/recreational drugs no k [id number] 10/13/2020 Nutrition discussed 10/13/2020 Weight gain counseling discussed 10/13/2020 Intimate Partner Violence no ky [id number] 10/13/2020 Unstable Housing no [id number] 10/13/2020 Use of any medicatio ns (including supplements, vitamins, herbs, or OTC drugs) PNV [email or web address] 10/13/2020 Avoidance of saunas or hot tubs discussed [email or web address] 10/13/2020 Indications for ultrasonography [email or web address] 10/13/2020 Comminucation Barriers no [email or web address] [email or web address] 10/13/2020 Anticipated course of care 10/13/2020 Toxoplasmosis precautions (cats/raw meat) no house cats [id number] 10/13/2020 Sexual activity discussed 10/13/2020 Exercise discussed 10/13/2020 Tobacco/smoking cess ation counseling (ask, advise, assess, assist, and arrange) no 10/13/2020 Barriers to Care no [id number] 10/13/2020 Environmental/work hazards no k 10/13/2020 Depression/Anxiety ( should be performed at least once during period) no [id number] 10/13/2020 WIC/Hands Referral 10/13/2020 Nutrition counseling ; special diet; dietary precautions (mercury, listeriosis) discussed 10/13/2020 Dental Care / Refer to Dentist 10/13/2020 Seat belt use 10/13/2020 Childbirth classes/hospital facilities 10/13/2020 Breast feeding 10/13/2020 Screening for aneuploidy discussed [email or web address] Second Trimester Discussed Date Discussion Item Discussion Note Discuss ed By Third Trimester Discussed Date Discussion Item Discussion Note Discuss ed By Infant Feeding Intention Breast Pain Management Plans Epidural Circumcision Preference No Delivery Information Delivery Date Delivery Type Labor Anesthesia Weeks Gestation Incision Type Labor Labor Length Hrs Delivered By Post Complications Tubal Sterilization Discharge Date Comments None Regional-Sp inal 37.3 Low Transvers e Olzeski, Gerda DO None 03/12/2021 AMA, GDMA1, GHTN, repeat ceserean per SMO.Reque sted d/c day of section (catholic) Discharge Information Feeding Method Contraceptive Method Maternal HG B and HCT Levels Ob Episode Information Episode Created Date Number of Fetuses Patient Bloodtype Patient rh Status Prepregnancy Weight lbs Domestic Partner Domestic Partner Phone Father Name Machine Stuffer Automatic Status 04/04/20 16 1 CLOSED Fetus Data First Name Last Name Admitted to NICU Weight (g) Sex Living Outcome Pediatric Complications Fetus ID Race Codes Race Delivery Type 3175.14 4 F Full Term 1923 Jose A Calculation Initial Jose A Date Initial Exam Date Initial Exam Provider Initial Ultrasound Date Last Menstrual Period Date Ultra Sound Weeks Gestation 0 Eighteen To Twenty Week Jose A Update Ultra Sound Date Fundal Height At Umbil Quickening Date Ultra Sound Latest Weeks Gestation Final Jose A Confirmed By Final Jose A Confirmed Date Final Jose A Date Ultra Sound Latest Days Gestation 0 0 Menstrual History Last Menstrual Date Menses Monthly On Bcp Conception Prior Menses Frequency Hcg Plus Date Menarche Onset Age Delivery Information Delivery Date Delivery Type Labor Anesthesia Weeks Gestation Incision Type Labor Labor Length Hrs Delivered By Post Complications Tubal Sterilization Discharge Date Comments 7 None 39 home , no issues, meagan Discharge Information Feeding Method Contraceptive Method Maternal HG B and HCT Levels Ob Episode Information Episode Created Date Number of Fetuses Patient Bloodtype Patient rh Status Prepregnancy Weight lbs Domestic Partner Domestic Partner Phone Father Name Machine Stuffer Automatic Status 04/04/20 16 1 CLOSED Fetus Data First Name Last Name Admitted to NICU Weight (g) Sex Living Outcome Pediatric Complications Fetus ID Race Codes Race Delivery Type 2721.55 2 M Full Term 192 Vaginal Jose A Calculation Initial Jose A Date Initial Exam Date Initial Exam Provider Initial Ultrasound Date Last Menstrual Period Date Ultra Sound Weeks Gestation 0 Eighteen To Twenty Week Jose A Update Ultra Sound Date Fundal Height At Umbil Quickening Date Ultra Sound Latest Weeks Gestation Final Jose A Confirmed By Final Jose A Confirmed Date Final Jose A Date Ultra Sound Latest Days Gestation 0 0 Menstrual History Last Menstrual Date Menses Monthly On Bcp Conception Prior Menses Frequency Hcg Plus Date Menarche Onset Age Delivery Information Delivery Date Delivery Type Labor Anesthesia Weeks Gestation Incision Type Labor Labor Length Hrs Delivered By Post Complications Tubal Sterilization Discharge Date Comments 9 37 false home , no issues, Wojciech Discharge Information Feeding Method Contraceptive Method Maternal HG B and HCT Levels Ob Episode Information Episode Created Date Number of Fetuses Patient Bloodtype Patient rh Status Prepregnancy Weight lbs Domestic Partner Domestic Partner Phone Father Name Machine Stuffer Automatic Status 04/04/20 16 1 CLOSED Fetus Data First Name Last Name Admitted to NICU Weight (g) Sex Living Outcome Pediatric Complications Fetus ID Race Codes Race Delivery Type 4082.32 8 M Full Term 192 Vaginal Jose A Calculation Initial Jose A Date Initial Exam Date Initial Exam Provider Initial Ultrasound Date Last Menstrual Period Date Ultra Sound Weeks Gestation 0 Eighteen To Twenty Week Jose A Update Ultra Sound Date Fundal Height At Umbil Quickening Date Ultra Sound Latest Weeks Gestation Final Jose A Confirmed By Final Jose A Confirmed Date Final Jose A Date Ultra Sound Latest Days Gestation 0 0 Menstrual History Last Menstrual Date Menses Monthly On Bcp Conception Prior Menses Frequency Hcg Plus Date Menarche Onset Age Delivery Information Delivery Date Delivery Type Labor Anesthesia Weeks Gestation Incision Type Labor Labor Length Hrs Delivered By Post Complications Tubal Sterilization Discharge Date Comments 1 40 false home delivery with hydrogeology professor, states no gdm, no issues, Raul Discharge Information Feeding Method Contraceptive Method Maternal HG B and HCT Levels Ob Episode Information Episode Created Date Number of Fetuses Patient Bloodtype Patient rh Status Prepregnancy Weight lbs Domestic Partner Domestic Partner Phone Father Name Machine Stuffer Automatic Status 04/04/20 16 1 CLOSED Fetus Data First Name Last Name Admitted to NICU Weight (g) Sex Living Outcome Pediatric Complications Fetus ID Race Codes Race Delivery Type 4309.12 4 F Full Term 8 Vaginal Jose A Calculation Initial Jose A Date Initial Exam Date Initial Exam Provider Initial Ultrasound Date Last Menstrual Period Date Ultra Sound Weeks Gestation 0 Eighteen To Twenty Week Jose A Update Ultra Sound Date Fundal Height At Umbil Quickening Date Ultra Sound Latest Weeks Gestation Final Jose A Confirmed By Final Jose A Confirmed Date Final Jose A Date Ultra Sound Latest Days Gestation 0 0 Menstrual History Last Menstrual Date Menses Monthly On Bcp Conception Prior Menses Frequency Hcg Plus Date Menarche Onset Age Delivery Information Delivery Date Delivery Type Labor Anesthesia Weeks Gestation Incision Type Labor Labor Length Hrs Delivered By Post Complications Tubal Sterilization Discharge Date Comments 5 None 40 false home [place], no issues per pt, Cristina Discharge Information Feeding Method Contraceptive Method Maternal HG B and HCT Levels Ob Episode Information Episode Created Date Number of Fetuses Patient Bloodtype Patient rh Status Prepregnancy Weight lbs Domestic Partner Domestic Partner Phone Father Name Machine Stuffer Automatic Status 04/04/20 16 1 O Positive 161 CLOSED Fetus Data First Name Last Name Admitted to NICU Weight (g) Sex Living Outcome Pediatric Complications Fetus ID Race Codes Race Delivery Type 3430.28 95 F true Full Term 1929 Vaginal Jose A Calculation Initial Jose A Date Initial Exam Date Initial Exam Provider Initial Ultrasound Date Last Menstrual Period Date Ultra Sound Weeks Gestation 08/19/2016 02/28/2016 04/05/2016 11/13/2015 20 Eighteen To Twenty Week Jose A Update Ultra Sound Date Fundal Height At Umbil Quickening Date Ultra Sound Latest Weeks Gestation Final Jose A Confirmed By Final Jose A Confirmed Date Final Jose A Date Ultra Sound Latest Days Gestation 04/05/20 16 20 08/20/19 17 4 Pre- Flowsheet Flowsheet Date 04/05/2016 Ferrell Score Blood Edema Fundus Height Fundus Units Glucose Ketones Leukocytes Nitrite Labor Signs Protein Cervic Dilation Cervic Effacement Cervic Station Type Weight in lbs Pre/Post Dialysis Refused BP Diastolic BP Location Tested BP Systolic BP Type Fetus Heart Rate Present Fetus Movement Comments Flowsheet Date 04/05/2016 Ferrell Score Blood Edema Fundus Height Fundus Units Glucose Ketones Leukocytes Nitrite Labor Signs Protein Cervic Dilation Cervic Effacement Cervic Station neg none 20 wks none negative none Negative none neg Type Weight in lbs Pre/Post Dialysis Refused [id number] BP Diastolic BP Location Tested BP Systolic BP Type 72 114 sitting Fetus Heart Rate Present A 145 Fetus Movement A Yes Comments AFM, no lof, no vb. bsUS res ults rev'd; complete and normal anatomy scan; pt denies concerns; rto 4 wks for routine OV;dgt Flowsheet Date 05/10/2016 Ferrell Score Blood Edema Fundus Height Fundus Units Glucose Ketones Leukocytes Nitrite Labor Signs Protein Cervic Dilation Cervic Effacement Cervic Station neg none 25 cm none negative none Negative Georges Garcia neg Type Weight in lbs Pre/Post Dialysis Refused 177.669923093204 BP Diastolic BP Location Tested BP Systolic BP Type 58 88 sitting Fetus Heart Rate Present A Present Fetus Movement A Yes Comments afm, no vb, no lof, voiced n o concerns at this time, KCDiscussed heartburn symptoms. Pt did not want rx but discussed trying either prevacid or zantac OTC. ALso, c/o low back pain and stretches shown. Discussed upcoming 28 wk visit. No other concerns at this time. Flowsheet Date 06/05/2016 Ferrell Score Blood Edema Fundus Height Fundus Units Glucose Ketones Leukocytes Nitrite Labor Signs Protein Cervic Dilation Cervic Effacement Cervic Station neg trace 29 none negative none Negative neg Type Weight in lbs Pre/Post Dialysis Refused 187.277997420275 BP Diastolic BP Location Tested BP Systolic BP Type 72 112 sitting Fetus Heart Rate Present A 150 Fetus Movement A Yes Comments AFM, no lof, no vb, c/o cont ractions, she states she had early contractions with her other children. Pt was not fasting for glucose test, she declined the test, stating she doesn't think she needs the test because she checks her sugars at home and they have been fine. bs// FBSs at home 70-80s and 2 hr pp-100 or <. She will get support hose d/t varicosities in right ankle area and left popliteal- Neg Rios's bilat. Prefers induction at 39 wks d/t lots of false labor at end of pgs and thinks she chris want something for pain. sk Flowsheet Date 06/18/2016 Ferrell Score Blood Edema Fundus Height Fundus Units Glucose Ketones Leukocytes Nitrite Labor Signs Protein Cervic Dilation Cervic Effacement Cervic Station neg none 30 none negative none Negative neg Type Weight in lbs Pre/Post Dialysis Refused 186.144220611048 BP Diastolic BP Location Tested BP Systolic BP Type 76 118 Fetus Heart Rate Present A 150 Fetus Movement A Yes Comments Afm, neg. leuks and neg. nit r, no lof, declined 1 hour gtt-ct// Some head congestion-advised can take Claritin and Robitussin DM OTC. Support hose have not come in the mail yet. Still prefers induction at 39 wks. sk Flowsheet Date 07/02/2016 Ferrell Score Blood Edema Fundus Height Fundus Units Glucose Ketones Leukocytes Nitrite Labor Signs Protein Cervic Dilation Cervic Effacement Cervic Station neg none 34 none negative none Negative neg Type Weight in lbs Pre/Post Dialysis Refused 190.650407438759 BP Diastolic BP Location Tested BP Systolic BP Type 80 116 sitting Fetus Heart Rate Present Fetus Movement A Yes Comments Afm, no lof, no vb-ct// Lots of questions about methods to induce labor rather than pitocin,epidural,etc Info given on GBS. sk Flowsheet Date 07/16/2016 Ferrell Score Blood Edema Fundus Height Fundus Units Glucose Ketones Leukocytes Nitrite Labor Signs Protein Cervic Dilation Cervic Effacement Cervic Station neg none 35 none negative none Negative neg Type Weight in lbs Pre/Post Dialysis Refused 195.921276693369 BP Diastolic BP Location Tested BP Systolic BP Type 64 112 sitting Fetus Heart Rate Present A 145 Fetus Movement A Yes Comments Afm, gbs, has a cold, no lof , no vb-ct// Sick with flu since last Friday-now just with congestion. GBS done. Really wants to deliver at 39 wks-may try castor oil close to that time and if not wants pitocin augmentation. RTC 1 wk. sk Flowsheet Date 07/23/2016 Ferrell Score Blood Edema Fundus Height Fundus Units Glucose Ketones Leukocytes Nitrite Labor Signs Protein Cervic Dilation Cervic Effacement Cervic Station neg none 36 none negative none Negative Pressure neg Type Weight in lbs Pre/Post Dialysis Refused 192.693683239273 BP Diastolic BP Location Tested BP Systolic BP Type 64 112 sitting Fetus Heart Rate Present A 145 Fetus Movement A Yes Comments Afm, no lof, no vb-ct// Feel ing better from URI but still with some cough. Ready to have baby,afraid it will be big like her last on(9#8) EFW currently 7-7 1/2#/Greg's. RTC 1 wk. Flowsheet Date 07/30/2016 Ferrell Score Blood Edema Fundus Height Fundus Units Glucose Ketones Leukocytes Nitrite Labor Signs Protein Cervic Dilation Cervic Effacement Cervic Station neg none 37 none negative none Negative neg 1cm 30 % -3 Type Weight in lbs Pre/Post Dialysis Refused 194.954013270532 BP Diastolic BP Location Tested BP Systolic BP Type 68 100 sitting Fetus Heart Rate Present A 155 Fetus Movement A Yes Comments Afm, no lof, no vb-ct// Few stronger contractions. Started EPO-will continue. RTC 1 wk. Flowsheet Date 08/06/2016 Ferrell Score Blood Edema Fundus Height Fundus Units Glucose Ketones Leukocytes Nitrite Labor Signs Protein Cervic Dilation Cervic Effacement Cervic Station neg none 37 none negative none Negative Uterine Contract ions neg 2cm 50% -2 Type Weight in lbs Pre/Post Dialysis Refused 197.517218734877 BP Diastolic BP Location Tested BP Systolic BP Type 64 108 sitting Fetus Heart Rate Present A 140 Fetus Movement Comments Afm, no lof, no vb, wants to be induced next week-ct// Adamant about wanting induction next Friday at 39 wks and understands the risks. Says last labor at home was 48 hrs and then had a pp hemorrhage a few hrs later when was home alone with 3 small children and had already gone back to work. Has no phone and closer one is over a mile away. Just prefers to deliver in the hospital and hopefully go home the same day. To come into [facility] L[facility]D at 7:30am. sk Menstrual History Last Menstrual Date Menses Monthly On Bcp Conception Prior Menses Frequency Hcg Plus Date Menarche Onset Age 0611/13/2015 Genetic Screening And Infection History Question Response Note Patient's Age Will Be 35 Years Or Older At Estim ated Date of Delivery false Thalassemia (New Zealander, Argentine, Mediterranean, Or Background): MCV < 80 false Neural Tube Defect (Meningomyelocele, Spina Bifi da, Or Anencephaly) false Congenital Heart Defect false Down Syndrome false Jj-Sachs (eg, Roman Catholic, Cajun, Gibraltarian-American) f alse Lion Disease false Sickle Cell Disease Or Trait () false Hemophilia Or Other Blood Disorders false Muscular Dystrophy false Cystic Fibrosis false Hague's Chorea false Mental Retardation/Autism false If Yes, Was Person Tested For Fragile X? false Other Inherited Genetic Or Chromosomal Disorder false Maternal Metabolic Disorder (eg, Type 1 Diabetes , PKU) false Patient Or Baby's Father Had A Child With Defects Not Listed Above false Recurrent Loss, Or A Stillbirth false Medications (including Suppl ements, Vitamins, Herbs, OTC Drugs), Illicit/Recreational Drugs, Alcohol false If Yes, Agent(s) And Strength/Dosage false Any Other Genetic History false Live With Someone With TB Or Exposed To TB false Patient Or Partner Has History Of Genital Herpes false Rash Or Viral Illness Since Last Menstrual Perio d false History Of STD, Gonorrhea, Chlamydia, HPV, Syphi lis false Other Infection History false History of HIV false History of Hepatitis false Prior GBS-infected child false Recent Travel Outside of Country false Delivery Information Delivery Date Delivery Type Labor Anesthesia Weeks Gestation Incision Type Labor Labor Length Hrs Delivered By Post Complications Tubal Sterilization Discharge Date Comments 7 Sp[facility] ne[facility]-Ep idural 38.4 SMO None 08/09/2016 [facility], pitocin augmentat ion, no repair, did not stay overnight (Timo) declined Discharge Information Feeding Method Contraceptive Method Maternal HG B and HCT Levels Breast Ob Episode Information Episode Created Date Number of Fetuses Patient Bloodtype Patient rh Status Prepregnancy Weight lbs Domestic Partner Domestic Partner Phone Father Name Machine Stuffer Automatic Status 04/04/20 16 1 CLOSED Fetus Data First Name Last Name Admitted to NICU Weight (g) Sex Living Outcome Pediatric Complications Fetus ID Race Codes Race Delivery Type 3175.14 4 F Full Term 1925 Vaginal Jose A Calculation Initial Jose A Date Initial Exam Date Initial Exam Provider Initial Ultrasound Date Last Menstrual Period Date Ultra Sound Weeks Gestation 0 Eighteen To Twenty Week Jose A Update Ultra Sound Date Fundal Height At Umbil Quickening Date Ultra Sound Latest Weeks Gestation Final Jose A Confirmed By Final Jose A Confirmed Date Final Jose A Date Ultra Sound Latest Days Gestation 0 0 Menstrual History Last Menstrual Date Menses Monthly On Bcp Conception Prior Menses Frequency Hcg Plus Date Menarche Onset Age Delivery Information Delivery Date Delivery Type Labor Anesthesia Weeks Gestation Incision Type Labor Labor Length Hrs Delivered By Post Complications Tubal Sterilization Discharge Date Comments 8 None false home , no issues, Day Discharge Information Feeding Method Contraceptive Method Maternal HG B and HCT Levels Ob Episode Information Episode Created Date Number of Fetuses Patient Bloodtype Patient rh Status Prepregnancy Weight lbs Domestic Partner Domestic Partner Phone Father Name Machine Stuffer Automatic Status 04/04/20 16 1 CLOSED Fetus Data First Name Last Name Admitted to NICU Weight (g) Sex Living Outcome Pediatric Complications Fetus ID Race Codes Race Delivery Type 3175.14 4 M Full Term 192 Vaginal Jose A Calculation Initial Jose A Date Initial Exam Date Initial Exam Provider Initial Ultrasound Date Last Menstrual Period Date Ultra Sound Weeks Gestation 0 Eighteen To Twenty Week Jose A Update Ultra Sound Date Fundal Height At Umbil Quickening Date Ultra Sound Latest Weeks Gestation Final Jose A Confirmed By Final Jose A Confirmed Date Final Jose A Date Ultra Sound Latest Days Gestation 0 0 Menstrual History Last Menstrual Date Menses Monthly On Bcp Conception Prior Menses Frequency Hcg Plus Date Menarche Onset Age Delivery Information Delivery Date Delivery Type Labor Anesthesia Weeks Gestation Incision Type Labor Labor Length Hrs Delivered By Post Complications Tubal Sterilization Discharge Date Comments 3 None 41 no issues, delivered in [facility] Discharge Information Feeding Method Contraceptive Method Maternal HG B and HCT Levels Ob Episode Information Episode Created Date Number of Fetuses Patient Bloodtype Patient rh Status Prepregnancy Weight lbs Domestic Partner Domestic Partner Phone Father Name Machine Stuffer Automatic Status 04/04/20 16 1 CLOSED Fetus Data First Name Last Name Admitted to NICU Weight (g) Sex Living Outcome Pediatric Complications Fetus ID Race Codes Race Delivery Type 3175.14 4 M Full Term 3 Jose A Calculation Initial Jose A Date Initial Exam Date Initial Exam Provider Initial Ultrasound Date Last Menstrual Period Date Ultra Sound Weeks Gestation 0 Eighteen To Twenty Week Jose A Update Ultra Sound Date Fundal Height At Umbil Quickening Date Ultra Sound Latest Weeks Gestation Final Jose A Confirmed By Final Jose A Confirmed Date Final Jose A Date Ultra Sound Latest Days Gestation 0 0 Menstrual History Last Menstrual Date Menses Monthly On Bcp Conception Prior Menses Frequency Hcg Plus Date Menarche Onset Age Delivery Information Delivery Date Delivery Type Labor Anesthesia Weeks Gestation Incision Type Labor Labor Length Hrs Delivered By Post Complications Tubal Sterilization Discharge Date Comments 5 None 40 false home , no issues, Geremias Discharge Information Feeding Method Contraceptive Method Maternal HG B and HCT Levels
--- OUTSIDE RECORDS SUMMARY | 2024-11-30 09:29 | XMS_ITS | Clinical Summary ---
Author Organization [facility] Address [address] [place] [address] Care Team Providers Care Metaphysicist Name Role Phone Unavailable Primary Care Provider Unavailabl e Social History Tobacco Use Types Packs/Day Years Used Date Smoking Tobacco: Never Assessed Comments Unknown Sex and Gender Information Value Date Recorded Sex Assigned at Not on file Legal Sex Female 7:37 PM EDT Gender Identity Not on file Sexual Orientation Not on file Last Filed Vital Signs Vital Sign Reading Time Taken Comments Blood Pressure 94/64 05/10/2019 1:59 PM EST Pulse - - Temperature - - Respiratory Rate - - Oxygen Saturation - - Inhaled Oxygen Concentration - - Weight - - Height - - Body Mass Index - - Plan of Treatment Not on file
--- NOTE | 2024-11-30 10:00 | CA_ITS ---
APPROVED REPORT Exam: Exercise Treadmill Technologist: Mena Richey Ht: 5 ft 3 in Wt: 193 lbs BSA: 1.90 m2 HR: 91 bpm BP: 120/82 mmHg Rhythm: NSR Stress Test Details Test: Exercise stress testing was performed using a Silvino protocol. HR Resting HR: 91 bpm Max Heart Rate (APMHR): 180 bpm Max HR Achieved: 176 bpm Target HR (85% APMHR): 153 bpm % of APMHR: 98 Recovery HR: 108 bpm HR response to stress: Normal HR response to stress BP Resting BP: 120.0/82.0 mmHg Max BP: 143.0/87.0 mmHg Recovery BP: 143.0/87.0 mmHg BP response to stress: Normal blood pressure response to stress. ECG Resting ECG: Normal sinus rhythm Stress ECG: < 0.[address] depression Arrhythmia: PVCs Recovery ECG: Normal sinus rhythm Recovery ST Change: Returned to baseline within 3 minutes of recovery Recovery Arrhythmia: PVCs Stress ECG Conclusion The patient sustained a mechanical fall during stress testing on the treadmill. She did not lose consciousness or have any head trauma. Symptoms: Dizziness, prodromal symptoms without show loss of consciousness Arrhythmias/Ectopy: Occasional PVCs ST-T Changes: < [address] depression.5 mm Conclusion: Average exercise capacity. Good HR augmentation at peak stress. The patient had a marked and rapid increase/change in HR at peak stress (correlating with symptoms). No significant ECG changes suggestive of ischemia at peak stress. Electronically signed by : Latesha Roque MD 11/30/2024 23:39:40
--- NOTE | 2024-11-30 10:45 | CA_ITS ---
APPROVED REPORT EXAM: Comprehensive 2D, Doppler, and color-flow Echocardiogram Neurourologist: Erin Dunbar RCS, RVS Ht: 5 ft 3 in Wt: 193lbs BSA: 1.90 BP: 132/81 mmHg Indications: Chest tightness, Dizziness, Family History of CM, Palpitations, SOB Echo Enhancing Agent Indication: Rule Out Septal Defect Agent(s) / Amount(s) Used: Agitated Saline 20 cc Comments: Positive right to left shunting in 3-phase bubble study 2D Dimensions IVSd 0.86 cm LVEF (Visual) 55.70 % PWd 0.81 cm LA Volume 36.10 mL LVDd 4.57 cm LA Volume Index 18.50 mL/m2 (M/F) 16-34 LVDs 3.25 cm Left Atrium 2.80 cm M-Mode Dimensions RVDd 2.29 cm (0.9-2.6) LA Diam 2.47 cm (1.9-4.0) LVDd 3.93 cm (3.5-5.7) LVDs 1.93 cm (3.5-5.7) IVSd 0.90 cm (0.6-1.1) PWd 1.10 cm (0.6-1.1) EF (Teich) 82.70% EPSs 0.70 cm FS 50.90% EDV (Teich) 67.10 mL TAPSE 2.39 (<1.7) ESV (Teich) 11.60 mL LV Diastology E Decel Time 150 (160-240 msec) E/A Ratio 0.77 MED A' 14.10 cm/s LAT A' 13.80 cm/s Aortic Valve JING Index 1.26 cm2/m2 AoV Peak Kory. 165.0 (50-130 cm/s) AO Peak GR. 10.90 mmHg AO Mean GR. 5.90 (<5 mmHg) AO VTI 31.3 (18-25 cm) JING (VTI) 2.45 (2.5-4.5 cm2) Mitral Valve MV E Max Kory. 82.0 (40-130 cm/s) MV A Velocity 105.0 (40-130 cm/s) E/A Ratio 0.77 MV PHT 44.0 ms Tricuspid Valve TR P. Velocity 197.00 cm/s RAP Estimate 10.00 mmHg RVSP 25.50 mmHg Left Ventricle The left ventricle is normal size. The left ventricular systolic function is normal. The left ventricular ejection fraction is within the normal range. There is normal left ventricular wall thickness. There is normal LV segmental wall motion. The left ventricular diastolic function is normal. LVEF is 55%. Right Ventricle The right ventricle is normal size. The right ventricular systolic function is normal. Atria The left atrium size is normal. The right atrium size is normal. Agitated saline administration demonstrates presence of interatrial shunt. Aortic Valve The aortic valve opens well. There is no aortic valvular stenosis. No aortic regurgitation is present. Mitral Valve The mitral valve is normal in structure. No evidence of mitral valve stenosis. Trace mitral regurgitation. Tricuspid Valve Tricuspid valve is grossly normal in structure and function. Pulmonic Valve The pulmonary valve is normal in structure. Trace pulmonic regurgitation. Trace tricuspid regurgitation. There is insufficient TR jet to estimate RVSP. Great Vessels The aortic root is normal in size. IVC is normal in size and collapses >50% with inspiration. Pericardium There is no pericardial effusion. Other Information Study Quality: Adequate Conclusion Normal biventricular size and systolic function. No significant valvular stenosis or regurgitation. Agitated saline administration demonstrates presence of interatrial shunt. In the setting of presence of symptoms, along with presence of interatrial shunt, further evaluation with RHIANNA (+ agitated saline) and cardiac MRI (shunt protocol) are suggested, if clinically indicated. Electronically signed by : Latesha Roque MD 12/04/2024 00:50:26
[2024-11-30 11:56] LABS: Hematocrit 41.2 % (37.0-47.0); Hemoglobin 13.8 g/dL (12.2-16.2); Immature Granulocytes % 0.2 %; Mean Corpuscular HGB Conc 33.5 g/dL (31.8-35.4); Mean Corpuscular Hemoglobin 29.8 pg (27.0-31.2); Mean Corpuscular Volume 89.0 fl (81-99); Nucleated Red Blood Cells % 0 %; Platelet Count 220 K/mm3 (142-424); Red Blood Count 4.63 M/mm3 (4.20-5.40); Red Cell Distribution Width-SD 43.2 fL; White Blood Count 5.6 K/mm3 (4.8-10.8)
[2024-11-30 12:34] LABS: Alanine Aminotransferase 24 U/L (12-78); Albumin Level 4.6 g/dl (3.5-5.0); Alkaline Phosphatase 58 U/L (38-126); Anion Gap 18.1 mEq/L (5-15); Aspartate Amino Transferase 25 U/L (14-36); Bilirubin,Direct 0.2 mg/dl (0.0-0.4); Bilirubin,Indirect 0.3 mg/dL (0.0-0.9); Bilirubin,Total 0.5 mg/dl (0.2-1.3); Bilirubin,Unconjugated 0.3 mg/dL (0.0-1.1); Blood Urea Nitrogen 12 mg/dl (7-17); Calcium 9.8 mg/dl (8.4-10.2); Carbon Dioxide 26 mmol/L (22.0-30.0); Chloride 100 mmol/L (98-107); Cholesterol 196 mg/dl (140-200); Creatinine,Serum 0.80 mg/dl (0.52-1.04); Estimated Glomerular Filt Rate 79 ml/min (>60); GFR (African American) 96 ML/MIN (>60); Glucose 96 mg/dl (74-100); HDL Cholesterol 60 mg/dl (40-60); Iron 127 ug/dL (37-170); Magnesium 1.7 mg/dl (1.6-2.3); Potassium 4.1 mmoL/L (3.5-5.1); Sodium 140 mmol/L (136-145); Total Protein,Serum 7.2 g/dl (6.3-8.2); Triglycerides 62 mg/dl (30-150)
[2024-11-30 12:50] LABS: Free T4 (Free Thyroxine) 0.94 ng/dl (0.78-2.19)
[2024-11-30 13:05] LABS: Thyroid Stimulating Hormone 1.15 uIU/mL (0.465-4.68)
[2024-11-30 13:43] LABS: Folate > 20.00 ng/mL
[2024-11-30 17:36] LABS: Total Iron Binding Capacity 314 ug/dL (265-497)
[2024-11-30 18:03] LABS: Ferritin 29.9 ng/ml (6.24-137)
[2024-12-01 14:21] LABS: Cortisol,AM 15.5 ug/dL (6.2-19.4)
== END 2024-11-30 23:59 | disposition home or self-care (01) ==
LOC: RT 09:25
PROVIDERS: Visit Provider Internal Medicine
DX: Q21.10 Atrial septal defect, unspecified (principal); I49.3 Ventricular premature depolarization; I48.0 Paroxysmal atrial fibrillation; R55 Syncope and collapse; R94.31 Abnormal electrocardiogram [ECG] [EKG]; Z82.49 Family history of ischemic heart disease and other diseases of the circulatory system
CPT/HCPCS: 80048; 80061; 80076; 82533; 82728; 82746; 83540; 83550; 83735; 84439; 84443; 85025; 93016; 93017; 93018; 93306

== ENCOUNTER 2024-12-27 10:39 | Outpatient (CLI) | payer SELFPAY ==
--- NOTE | 2024-12-27 10:30 | MR_ITS ---
APPROVED REPORT First Crusher: CLINICAL INDICATION Evaluation for interatrial shunt TECHNIQUE Image Acquisition: Cardiac magnetic resonance (CMR) was performed on Siemens Espree MRI 1.5T scanner. Software platform sequences were performed using the Siemens Nexterra MR B19 platform. A set of three-plane, low-resolution, large [id number] localizers were initially acquired. Then axial, coronal, sagittal TrueFISP, as well as axial HASTE images, were obtained. These were followed by gated TrueFISP breathold cinematic sequences obtained in the short axis with 8 mm slices and 2 mm gaps, 2-chamber (vertical long axis), 3-chamber, 4-chamber (horizontal long axis). A bolus of contrast was injected intravenously with first-pass sequences obtained in the short axis and four-chamber planes. After approximately 10 minutes, a TI lab tester sequence was performed to determine the optimal TI time. Using the optimized TI time, delayed contrast enhancement segmented inversion???recovery TurboFLASH sequences were obtained in the short axis, 2-chamber, 3-chamber, and 4-chamber projections. 2D-velocity phase mapping was performed. Functional parameters were calculated by offline analysis on an independent workstation ([employer], [employer]). Contrast: ProHance??? (Gadoteridol) FINDINGS MORPHOLOGY AND FUNCTION Left ventricle: The left ventricle is normal in size. The indexed left ventricular end-diastolic volume (LVEDVi) is 71 ml/m2 (reference range 57-105 ml/m2 in males, 56-96 ml/m2 in females). Normal left ventricular systolic function is present. There is normal left ventricular wall thickness. There are no regional wall motion abnormalities noted. LVEF is calculated at 59.7% (reference range 57-77%). Right ventricle: The right ventricle is normal in size. The indexed right ventricular end-diastolic volume (RVEDVi) is 81 ml/m2 (reference range 61-121 ml/m2 in males, 48-112 ml/m2 in females). Normal right ventricular systolic function is present. RVEF is calculated at 51.8% (reference range 52-72% in males, 51-71% in females). Atria: The left atrium is normal in size. The maximum indexed left atrial volume is 22 ml/m2 (reference range 26-52 ml/m2 in males, 27-53 ml/m2 in females). The right atrium is normal in size. The maximum indexed right atrial volume is 31 ml/m2 (reference range 18-90 ml/m2). Aorta: The diameter of the aortic annulus is normal, measuring 23 mm (coronal view reference range 21-30 mm in males, 19-27 mm in females). The diameter of the aortic sinus is normal, measuring 30 mm (coronal view reference range 25-42 mm in males, 24-36 mm in females). The diameter of the sinotubular junction is normal, measuring 25 mm (coronal view reference range 18-32 mm in males, 18-28 mm in females). The diameters of the ascending and descending thoracic aorta are normal. Main pulmonary artery: The main pulmonary artery diameter is normal. Pericardium: The pericardial thickness is normal. The pericardial thickness measures 1.0 mm (normal < 4.0 mm). There is no pericardial effusion. VALVES The valvular morphologies in the visualized sequences appear normal. There is no significant valvular stenosis or regurgitation of the mitral, aortic, tricuspid, or pulmonic valve noted visually. Systolic anterior motion of the mitral valve is not visualized. Ratio of pulmonary to systemic flow, Qp:Qs ratio = 1.15 (normal < or = 1.2, hemodynamically significant shunt > 1.5), demonstrating no evidence of hemodynamically significant shunt. TISSUE CHARACTERIZATION Resting Perfusion: Normal myocardial blood flow at rest. No evidence of resting hypoperfusion. Myocardial Fibrosis and/or edema: Normal gadolinium kinetics are present. No evidence of late gadolinium enhancement is noted, consistent with absence of myocardial scarring, infarction, or necrosis. T2-weighted imaging demonstrates no evidence of myocardial edema or inflammation. OTHER No other significant findings are noted. However, this exam is focused on the cardiac structure and function. IMPRESSION Normal LV size with normal LV systolic function. LVEDVi= 71 ml/m2 and LVEF= 59.7%. Normal RV size with normal RV systolic function. RVEDVi= 81 ml/m2 and RVEF= 51.8%. No atrial enlargement. No CMR evidence of myocardial scarring, infarction, or necrosis. No evidence of myocardial edema or inflammation. Perfusion analysis demonstrates normal blood flow at rest with no evidence of resting hypoperfusion. Ratio of pulmonary to systemic flow, Qp:Qs ratio = 1.15 (normal < or = 1.2, hemodynamically significant shunt > 1.5), demonstrating no evidence of hemodynamically significant shunt. COMPARISON None CRITICAL RESULT None COMMUNICATION The above findings were relayed to the patient at the time of the routine outpatient cardiology follow-up visit, prior to dictation of this report. The findings of this cardiac MR were reviewed, reported, and signed by Cooper Roque MD (Head Refrigeration Engineer). Conclusion Electronically signed by : Latesha Roque MD 12/30/2024 10:11:44
--- OUTSIDE RECORDS SUMMARY | 2024-12-27 10:42 | XMS_ITS | Clinical Summary ---
Author Organization [facility] Address [address] [place] [address] Care Team Providers Care Data Center Consultant Name Role Phone Yang Mcduffie Primary Care Provider [phone]- [phone] Allergies No known active allergies Medications metoprolol tartrate (LOPRESSOR) 50 MG tablet TAKE ONE-HALF TABLET BY MOUTH 2 TIMES DAILY. 90 tablet 1 08/13/2024 Active flecainide (TAMBOCOR) 100 MG tablet Take 1 tablet by mouth 2 (Two) Times a Day. 180 tablet 2 11/16/2024 Active Active Problems Problem Noted Date Diagnosed Date AF (paroxysmal atrial fibrillation) 07/11/2022 Encounters Date Type Department Care Team Description 11/16/2024 Refill [facility] [address] [place] [address] [address] [place] [address] Ananth Zarate MD Med Refill 10/07/2024 11:15 AM EDT Office Visit [facility] [address] [place] [address] [address] [place] [address] Ananth Zarate MD AF (paroxysmal atrial fibrillation) (Primary Dx); Autonomic orthostatic hypotension 10/07/2024 Travel from Last 3 Months Family History Medical History Relation Name Comments No Known Problems Brother Cardiomyopathy Father No Known Problems Maternal Grandfather No Known Problems Maternal Grandmother No Known Problems Mother Cardiomyopathy Paternal Grandfather No Known Problems Paternal Grandmother No Known Problems Sister Relation Name Status Comments Brother Alive Father Maternal Grandfather Maternal Grandmother Alive Mother Alive Paternal Grandfather Paternal Grandmother Alive Sister Alive Social History Tobacco Use Types Packs/Day Years Used Date Smoking Tobacco: Never Smokeless Tobacco: Never Tobacco Cessation:Counseling Given: Not Answered Alcohol Use Standard Drinks/Week Comments Never 0 (1 standard drink = 0.6 oz pur e alcohol) Comments Unknown Sex and Gender Information Value Date Recorded Sex Assigned at Not on file Legal Sex Female 1:25 PM EDT Gender Identity Not on file Sexual Orientation Not on file Last Filed Vital Signs Vital Sign Reading Time Taken Comments Blood Pressure 108/60 10/07/2024 11:46 AM EDT Pulse 63 10/07/2024 11:46 AM EDT Temperature 36.7 C (98 F) 05/28/2022 4:05 PM EST Respiratory Rate 20 05/28/2022 4:05 PM EST Oxygen Saturation 100% 10/07/2024 11:46 AM EDT Inhaled Oxygen Concentration - - Weight 86.2 kg (190 lb) 10/07/2024 11:46 AM EDT Height 160 cm (5' 3 ) 10/07/2024 11:46 AM EDT Body Mass Index 33.66 10/07/2024 11:46 AM EDT Plan of Treatment Upcoming Encounters Date Type Department Care Team (Late st Contact Info) Description 06/09/2025 11:30 AM EST Office Visit [facility] [address] [facility] [address] [place] [address] Ananth Zarate MD [address] [facility] [address] [place] [address] Health Maintenance Due Date Last Done Comments Annual Gynecologic Pelvic an d Breast Exam 1984 PAP SMEAR 2005 ANNUAL PHYSICAL 05/28/2022 HEPATITIS C SCREENING 05/28/2022 COVID-19 Vaccine ( - 2023-2 5 season) 2024 MAMMOGRAM 2024 TDAP/TD VACCINES (2 - Td or Tdap) 01/05/2025 015 INFLUENZA VACCINE 02/23/2025 Pneumococcal Vaccine 0-49 Aged Out No longer eligible based on patient's age to complete this topic Procedures Procedure Name Priority Date/Time Associated Diagnosis Comments ECG 12-LEAD Routine 10/07/2024 AF (paroxysmal atrial fibrillation) from Last 3 Months Results * ECG 12-LEAD (10/07/2024) Narrative 10/07/2024 Ananth Zarate MD 10/07/2024 12:21 PM ECG 12 Lead Date/Time: 10/07/2024 12:03 PM Performed by: Ananth Zarate MD Authorized by: Ananth Zarate MD Comparison: compared with previous ECG from 02/12/2024 Similar to previous ECG Rhythm: sinus rhythm BPM: 65 Procedure Note Ananth Zarate MD - 10/07/2024 11:15 AM EDT Meagan Simon Tiffanie 1985 10/07/2024 [facility] Referring Provider: No ref. provider found Yang Mcdufife PA [address] [facility] [address] [place] [address] Chief Complaint Patient presents with AF (paroxysmal atrial fibrillation) Shortness of Breath Dizziness Problem List: Paroxysmal Atrial fibrillation CHADSvasc = 0 Echocardiogram 2011: EF 60-65% Dx: 2013 holter monitor Echocardiogram 05/29/2022: EF 56-60%, diastolic function normal, nosignificant valve abnormalities Surgeries Csection x2 Allergies No Known Allergies Current Medications Current Outpatient Medications: flecainide (TAMBOCOR) 100 MG tablet, TAKE 1 TABLET BY MOUTH TWICEDAILY., Disp: 180 tablet, Rfl: 1 metoprolol tartrate (LOPRESSOR) 50 MG tablet, TAKE ONE-HALF TABLET BYMOUTH 2 TIMES DAILY., Disp: 90 tablet, Rfl: 1 History of Present Illness: Pt presents for follow up of AF. Since we last saw the pt, pt denies anyAF episodes other than a couple of flutters for 1-2 seconds. She deniesCP. She has SOB when she walks up steps, but not with regular walking.She states that she is having issues with low BPs in the last couple ofmonths, usually 90/50 mmHg. She states if she is more tired or does a lotof work, it drops throughout the day. She has had presyncope. No syncope.She is trying to drink body armour and thinks that helps. She has triedskipping her metoprolol but then her HR gets high. No CVA like symptoms.No recent hospitalizations or ER visits. Vitals: 10/07/24 1146 BP: 108/60 BP Location: Left arm Patient Position: Sitting Pulse: 63 SpO2: 100% Weight: 86.2 kg (190 lb) Height: 160 cm (63 ) Body mass index is 33.66 kg/m . PE: General: NAD. A & O x 3 Neck: no JVD, no carotid bruits, no TM Heart RRR, NL S1, S2, S4 present, no rubs, murmurs Lungs: CTA, no wheezes, rhonchi, or rales Abd: soft, non-tender, NL BS Ext: No musculoskeletal deformities, no edema, cyanosis, or clubbing Psych: normal mood and affect Diagnostic Data: ECG 12 Lead Date/Time: 10/07/2024 12:03 PM Performed by: Ananth Zarate MD Authorized by: Ananth Zarate MD Comparison: compared with previousECG from 02/12/2024 Similar to previous ECG Rhythm: sinus rhythm BPM: 65 1. AF (paroxysmal atrial fibrillation) 2. Autonomic orthostatic hypotension Plan: 1. PAF -Chadsvasc 0 off oral anticoagulation. -Echocardiogram 05/29/2022: EF 56-60%, diastolic function normal, nosignificant valve abnormalities. - AFIB well controlled on Flecainide 2. Hypotension with Vaso-vagal Reaction: - she is experiencing drops in BP with symptoms of presyncope Encouraged the patient to take in significant amount of salt on a dailybasis as well as water. Will lower her metoprolol to 25 mg p.o. nightlyat this time.. F/up in 8 months Scribed for Ananth Zarate MD by Joanna Barroso PA-C. 10/07/2024 12:20EDT IAnanth MD, personally performed the services described inthis documentation as scribed by the above named individual in mypresence, and it is both accurate and complete. 10/07/2024 12:20 EDT us Ananth Zarate MD ECG ORDERABLES Final Result from Last 3 Months Insurance MEDICAID PENDING on file Care Teams Data Center Consultant Relationship Specialty Start Date End Date Yang Mcduffie PA [address] [facility] [address] [place] [phone] PCP - General Physician Legislative Correspondent 07/11/22
--- OUTSIDE RECORDS SUMMARY | 2024-12-27 10:42 | XMS_ITS | Clinical Summary ---
Author Organization [facility] Address [address] [place] [address] Care Team Providers Care Technical Illustrator Name Role Phone Unavailable Primary Care Provider [...]
--- OUTSIDE RECORDS SUMMARY | 2024-12-27 10:42 | XMS_ITS | Encounter Summary ---
Author Organization [facility] Address [address] [place] [id number] Care Team Providers Care [employer] Electrical Systems Designer Name Role Phone Yang Mcduffie Primary Care Provider [phone]- [phone] Reason for Visit * Reason Onset Date Comments Med Refill 11/16/2024 Encounter Details Date Type Department Care Team (Late st Contact Info) Description 11/16/2024 Refill [facility] [address] [place] [phone] Ananth Zarate MD [address] [facility] [address] [place] [address] Med Refill Social History Tobacco Use Types Packs/Day Years Used Date Smoking Tobacco: Never Smokeless Tobacco: Never Alcohol Use Standard Drinks/Week Comments Never 0 (1 standard drink = 0.6 oz pur e alcohol) Comments Unknown Sex and Gender Information Value Date Recorded Sex Assigned at Not on file Legal Sex Female 1:25 PM EDT Gender Identity Not on file Sexual Orientation Not on file documented as of this encounter Miscellaneous Notes * Telephone Encounter - Zeus Craig RegSched Rep - 11/16/2024 9:26 AM EDT Caller: [email or web address] Relationship: Emergency Contact Best call back number: [phone] Requested Prescriptions: Requested Prescriptions Pending Prescriptions Disp Refills flecainide (TAMBOCOR) 100 MG tablet 180 tablet 1 Sig: Take 1 tablet by mouth 2 (Two) Times a Day. Pharmacy where request should be sent: [facility] - [place], [place] - [address] [place] [address] - [phone] FX Last office visit with prescribing clinician: 10/07/2024 Last telemedicine visit with prescribing clinician: Visit date not found Next office visit with prescribing clinician: 06/09/2025 Additional details provided by patient: Does the patient have less than a 3 day supply: [x] Yes [] No Would you like a call back once the refill request has been completed: [x] Yes [] No If the office needs to give you a call back, can they leave a voicemail: [x] Yes [] No Samson Byers Rep 11/16/24 09:27 EDT documented in this encounter Plan of Treatment Upcoming Encounters Date Type Department Care Team (Late st Contact Info) Description 06/09/2025 11:30 AM EST Office Visit [facility] [address] [place] [address] [place] [phone] Ananth Zarate MD [address] [place] [address] documented as of this encounter Visit Diagnoses Not on filedocumented in this encounter Care Teams [employer] Electrical Systems Designer Relationship Specialty Start Date End Date Yang Mcduffie PA [address] [facility] [address] [place], [place] [phone] PCP - General Physician Log Buncher 07/11/22 documented as of this encounter
[2024-12-27] MEDS: GADOTERIDOL INJ 20ML SYRINGE 19 ML IV (11:38)
[2024-12-27] MEDS: 0.9 % SODIUM CHLORIDE 50 ML VIAL IV (11:38)
[2024-12-27] MEDS: SODIUM CHLORIDE 0.9% 10ML SYR (RAD ONLY) 10 ML IV (11:38)
== END 2024-12-27 23:59 | disposition home or self-care (01) ==
LOC: RAD 10:40
PROVIDERS: PCP Internal Medicine; Visit Provider Internal Medicine
DX: Q24.8 Other specified congenital malformations of heart (principal); R00.2 Palpitations; R00.0 Tachycardia, unspecified; Z82.49 Family history of ischemic heart disease and other diseases of the circulatory system; R55 Syncope and collapse; R42 Dizziness and giddiness; I48.0 Paroxysmal atrial fibrillation; R06.09 Other forms of dyspnea; R07.89 Other chest pain
CPT/HCPCS: 75561; A9576